=== PATIENT | male | born 1935 | race Caucasian/White ===

== ENCOUNTER → 2020-05-30 10:15 | Outpatient (BNVA) | payer MEDICARE, SELFPAY | PROVIDERS: PCP Hospitalist; Visit Provider Urology | DX: N40.0 Benign prostatic hyperplasia without lower urinary tract symptoms (principal); R33.9 Retention of urine, unspecified | CPT/HCPCS: 51798; 81002; 99212 ==

== ENCOUNTER 2020-12-05 10:51 | Outpatient (REF) | payer MEDICARE, SELFPAY | END 2020-12-05 10:52 | disposition home or self-care (01) | LOC: HO.LNP 10:51 | DX: R33.9 Retention of urine, unspecified (principal) | CPT/HCPCS: 51798; 81002; 87086; 87088; 87186; 99212 ==

== ENCOUNTER → 2021-06-04 08:59 | Outpatient (BNVA) | payer MEDICARE, SELFPAY | PROVIDERS: PCP Hospitalist | DX: R33.9 Retention of urine, unspecified (principal) | CPT/HCPCS: 51798; 99212 ==

== ENCOUNTER 2021-07-09 21:53 | Emergency (ER) | payer MEDICARE, SELFPAY ==
--- NOTE | ~2021-07-09 | XR_ITS ---
EXAMINATION: XR CHEST CLINICAL INFORMATION: Cough. Covid. COMPARISON: None TECHNIQUE: Frontal portable view of the chest was obtained. 10:44 PM FINDINGS: Lungs are clear. No pulmonary vascular congestion. There is no pleural effusion. The heart size is normal. The cardiac and mediastinal contours are normal. There are calcifications of the thoracic aorta. There are multilevel degenerative changes of dorsal spine. 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 Degenerative change of glenohumeral and acromioclavicular joints of both shoulders. XR/XR chest 1V IMPRESSION: Unremarkable examination.
[2021-07-09 22:16] VITALS: BP 118/62; BP 146/71; PULSE 72; PULSE 80; RESP 13; TEMP 37.3; O2SAT 96; O2SAT 97; BMI 23.4
--- NOTE | 2021-07-09 22:16 | ECG_ITS ---
Test Reason : UPPER RESP Blood Pressure : / mmHG Vent. Rate : 080 BPM Atrial Rate : 080 BPM P-R Int : 156 ms QRS Dur : 082 ms QT Int : 330 ms P-R-T Axes : 071 054 044 degrees QTc Int : 380 ms Normal sinus rhythm Normal ECG When compared with ECG of 13-DEC-2001 14:51, No significant change was found Referred By: Vandana Falk Electronically Signed By:JOSE CALLAHAN
--- NOTE | 2021-07-09 22:17 | ED_ITS ---
HPI - General Adult General Chief complaint: Upper Respiratory Symptoms Stated complaint: cough due to covid Time Seen by Provider: 07/09/21 22:03 Source: patient Mode of arrival: ambulatory Limitations: no limitations History of Present Illness HPI narrative: Pt comes to the ED c/o worsening cough for 4 days. Patient states that 4 days ago he tested positive for COVID-19. His daughter and his also have COVID- 19. Patient states that he is immunized for COVID and also has a blister. Patient states that the cough has been present for over a month now, but recently got worse. Patient reports intermittent episodes of tachycardia, no significant shortness of breath. No chest pain, no lower extremity pain Related Data Home Medications Medication Instructions Recorded Confirmed fluticasone propionate 50 1 spray INTRANASAL BID 05/30/20 mcg/actuation nasal spray,suspension ipratropium bromide 21 mcg (0.03 INTRANASAL 05/30/20 %) nasal spray Previous Rx's Medication Instructions Recorded ascorbic acid (vitamin C) 1,000 mg 1 g PO DAILY 90 Days #90 tab 05/30/20 tablet sulfamethoxazole 800 1 tab PO BID 5 Days #10 tab 12/10/20 mg-trimethoprim 160 mg tablet (Bactrim DS) bethanechol chloride 25 mg tablet 25 mg PO BID 30 Days #60 tab 06/04/21 terazosin 10 mg capsule 10 mg PO BEDTIME #90 cap 06/30/21 nirmatrelvir 150 mg x 2-ritonavir See Rx Instructions .ROUTE 07/10/21 100 mg tablet (EUA) (Paxlovid .COMPLEX #30 tab (EUA)) Allergies Allergy/AdvReac Type Severity Reaction Status Date / Time No Known Allergies Allergy Verified 07/09/21 22:07 [No Known Allergies*] Review of Systems Review of Systems: Constitutional : No Weight loss, No Fever, No Chills, No Night Sweats, No Fatigue, No Malaise ENT/Mouth : No Hearing loss, No Ear Pain, No Nasal Congestion, No Sinus Pain, No Hoarseness, No sore throat, No Rhinorrhea, No Swallowing Difficulty Eyes: No Eye Pain, No Swelling, No Redness, No Foreign Body, No Discharge, No Vision Changes Cardiovascular : No Chest Pain, No SOB, No Dyspnea on Exertion, No Orthopnea, No Edema, No Palpitations Respiratory : Complaining of worsening dry cough, No Sputum, No Wheezing, No Smoke Exposure, No Dyspnea Gastrointestinal : No Nausea, No Vomiting, No Diarrhea, No Constipation, No abdominal Pain, No Hematochezia, No Melena Genitourinary : no irregular bleeding, No Dysuria, No Urinary Frequency, No Hematuria, No Urinary Incontinence, No Urgency, No Flank Pain, No Urinary Flow Changes, No Hesitancy Musculoskeletal : No joint pain, No Myalgias, No Joint Swelling Skin : No Skin Lesions, No rash Neuro : No Weakness, No Numbness, No Paresthesias, No Loss of Consciousness, No Dizziness, No Headache Psych : No Anxiety/Panic, No Depression, No SI/HI/AH/VH, No Social Issues, Heme/Lymph: No Bruising, No Bleeding,No Lymphadenopathy Endocrine : No Polyuria, No Polydipsia, No Temperature Intolerance [facility] Past Medical History Medical History BPH (benign prostatic hyperplasia) H/O urinary retention UTI (urinary tract infection) Surgical History History of hernia repair Social History Social History Alcohol intake: current Alcohol intake frequency: holidays/special occasions only Alcohol type: hard liquor Patient Tobacco Use Status: Former Tobacco user Smoked in Last 30 Days: No Use of substances other than those prescribed or required for medical reasons: No Advance Directives: No Advance Directives Information Provided: No Physical Exam ED Vital Signs: Vital Signs - 24 hr 07/09/21 22:16 07/09/21 22:24 07/09/21 22:53 Temperature 99.1 F Pulse Rate 72 76 Respiratory Rate 13 21 H Blood Pressure 146/71 H Pulse Oximetry 96 97 96 07/09/21 23:59 07/10/21 00:00 Temperature 98.8 F Pulse Rate 81 Respiratory Rate 20 Blood Pressure 137/70 Pulse Oximetry 96 BMI result Body Mass Index 23.4 Const Other: Appearance: Alert. Oriented X3. No acute distress. Well-appearing Eyes: Pupils equal, round and reactive to light. ENT: Pharynx normal. Neck: Normal inspection. Neck supple. No lymph nodes noted. No crepitus CVS: Normal heart rate and rhythm. Pulses normal. Normal S1 and S2 Respiratory: No respiratory distress. Breath sounds normal. No Wheezing. No r ales , oxygen saturation 98% on room air. Abdomen: Soft and nontender. No rigidity. No distention. Skin: Skin warm and dry. Normal skin color. Normal skin turgor. Extremities: No lower extremity edema. No Lacerations. No Rash Neuro: Oriented X 3. No motor deficit. No sensory deficit. Moving all extremities. No slurred speech. CN 2 through 12 grossly intact Psych: calm, cooperative, normal affect Course Course Course Narrative: Chest x-ray and labs pending. As expected, patient tested positive for COVID-19. Patient has mild CRIS, we do not have any previous labs to compare creatinine level. Patient will be receiving IV fluids. Ambulating trial without oxygen, patient's saturation remained 94-97. Patient had no shortness of breath. Patient was given 1 L of IV fluids. Patient instructed to follow-up with his primary care physician. I discussed with the patient that the weakness and the cough will remain for several weeks Medical Decision Making Lab Data Result diagrams: 07/09/21 22:40 07/09/21 22:40 Labs: Lab Results 07/09/21 07/09/21 07/09/21 Range/Units 22:40 22:40 22:40 WBC 5.9 (4.8-10.8) X10*3/uL RBC 4.08 L (4.60-5.80) X10*6/uL Hgb 13.3 L (14.0-18.0) g/dl Hct 38.6 L (42.0-52.0) % MCV 94.6 (80.0-98.0) fL MCH 32.6 (27.0-33.0) pg MCHC 34.5 (31.0-36.0) g/dl RDW 12.9 (11.0-16.0) % Plt Count 164 (160-400) X10*3/uL MPV 9.5 (9.4-12.4) fL Immature Gran % (Auto) 0.2 (0.0-0.4) % Neut % (Auto) 75.8 H (45-73) % Lymph % (Auto) 9.0 L (20-40) % Rutherford % (Auto) 14.5 H (2-11) % Eos % (Auto) 0.2 (0-4) % Baso % (Auto) 0.3 (0-2) % Lymph # (Auto) 0.5 L (1.2-4.9) X10*3/uL Rutherford # (Auto) 0.9 (0.1-1.2) X10*3/uL Eos # (Auto) 0.0 (0.0-0.4) X10*3/uL Baso # (Auto) 0.0 (0.0-0.2) X10*3/uL Abs Immat Gran (auto) 0.01 (0.00-0.03) X10*3/uL Absolute Neuts (auto) 4.4 (2.0-8.3) x10*3/uL Absolute Nucleated RBC 0.000 (0.0-0.012) X10*3/uL Nucleated RBC % (auto) 0.0 (0.0-0.2) /100WBC D-Dimer High Sensitivty NG/ML Sodium 135 (135-145) mmol/L Potassium 3.9 (3.3-5.1) mmol/L Chloride 102 (96-108) mmol/L Carbon Dioxide 26 (22-29) mmol/L Anion Gap 11 L (12-20) BUN 21 H (9-16) mg/dL Creatinine 1.50 H (0.5-1.4) mg/dL Estim Creat Clear Calc 25.9 Estimated GFR 45 Random Glucose 114 (60-115) mg/dL Calcium 8.7 (8.4-10.2) mg/dL Total Bilirubin 0.5 (0.0-1.0) mg/dL Direct Bilirubin 0.2 (0.0-0.5) mg/dL AST 24 (5-37) U/L ALT 18 (0-40) U/L Alkaline Phosphatase 50 (39-117) U/L Troponin I High Sens 5.1 (<3.5-35.0) ng/L Total Protein 6.5 (6.5-8.0) g/dL Albumin 3.8 (3.5-5.0) g/dL COVID-19 (LEE ANN) (Negative) COVID-19 Clin Com 07/09/21 07/09/21 Range/Units 22:40 23:58 WBC (4.8-10.8) X10*3/uL RBC (4.60-5.80) X10*6/uL Hgb (14.0-18.0) g/dl Hct (42.0-52.0) % MCV (80.0-98.0) fL MCH (27.0-33.0) pg MCHC (31.0-36.0) g/dl RDW (11.0-16.0) % Plt Count (160-400) X10*3/uL MPV (9.4-12.4) fL Immature Gran % (Auto) (0.0-0.4) % Neut % (Auto) (45-73) % Lymph % (Auto) (20-40) % Rutherford % (Auto) (2-11) % Eos % (Auto) (0-4) % Baso % (Auto) (0-2) % Lymph # (Auto) (1.2-4.9) X10*3/uL Rutherford # (Auto) (0.1-1.2) X10*3/uL Eos # (Auto) (0.0-0.4) X10*3/uL Baso # (Auto) (0.0-0.2) X10*3/uL Abs Immat Gran (auto) (0.00-0.03) X10*3/uL Absolute Neuts (auto) (2.0-8.3) x10*3/uL Absolute Nucleated RBC (0.0-0.012) X10*3/uL Nucleated RBC % (auto) (0.0-0.2) /100WBC D-Dimer High Sensitivty 164 NG/ML Sodium (135-145) mmol/L Potassium (3.3-5.1) mmol/L Chloride (96-108) mmol/L Carbon Dioxide (22-29) mmol/L Anion Gap (12-20) BUN (9-16) mg/dL Creatinine (0.5-1.4) mg/dL Estim Creat Clear Calc Estimated GFR Random Glucose (60-115) mg/dL Calcium (8.4-10.2) mg/dL Total Bilirubin (0.0-1.0) mg/dL Direct Bilirubin (0.0-0.5) mg/dL AST (5-37) U/L ALT (0-40) U/L Alkaline Phosphatase (39-117) U/L Troponin I High Sens (<3.5-35.0) ng/L Total Protein (6.5-8.0) g/dL Albumin (3.5-5.0) g/dL COVID-19 (LEE ANN) Positive A (Negative) COVID-19 Clin Com See Note Discharge Plan Discharge Clinical Impression: COVID-19, CRIS (acute kidney injury) Patient Disposition: Home, Self-Care Instructions: Acute Kidney Injury (DC), COVID-19 (Coronavirus Disease 2019) (ED) Additional Instructions: Please follow-up with your primary care physician tomorrow. If you have any worsening or new symptoms, please return to the emergency room or call 911 Prescriptions: New Paxlovid (EUA) 150 mg x 2- 100 mg tablet See Rx Instructions .ROUTE .COMPLEX Qty: 30 0RF Rx Instructions: take TWO 150 mg tablets of nirmatrelvir with ONE 100 mg tablet of ritonavir twice daily for 5 days No Action sulfamethoxazole-trimethoprim [Bactrim DS] 800-160 mg tablet 1 tab PO BID 5 Days Qty: 10 0RF terazosin 10 mg capsule 10 mg PO BEDTIME Qty: 90 0RF fluticasone propionate 50 mcg/actuation spray,suspension 1 spray intranasal BID 0RF ipratropium bromide 21 mcg (0.03 %) spray,non-aerosol intranasal 0RF ascorbic acid (vitamin C) 1,000 mg tablet 1 g PO DAILY 90 Days Qty: 90 1RF bethanechol chloride 25 mg tablet 25 mg PO BID 30 Days Qty: 60 3RF
[2021-07-09 22:24] VITALS: PULSE 746; O2SAT 97
[2021-07-09 22:46] LABS: MANUAL DIFF FLAG NO
[2021-07-09 22:48] LABS: Basophils Percent Auto 0.3 % (0-2); Eosinophils Percent Auto 0.2 % (0-4); Hematocrit 38.6 % (42.0-52.0); Hemoglobin 13.3 g/dl (14.0-18.0); Imm Gran Abs Auto 0.01 X10*3/uL (0.00-0.03); Imm Gran Pct Auto 0.2 % (0.0-0.4); Lymphocytes Absolute Auto 0.5 X10*3/uL (1.2-4.9); Mean Corpuscular HGB Conc 34.5 g/dl (31.0-36.0); Mean Corpuscular Hemoglobin 32.6 pg (27.0-33.0); Mean Corpuscular Volume 94.6 fL (80.0-98.0); Mean Platelet Volume 9.5 fL (9.4-12.4); Monocytes Absolute Auto 0.9 X10*3/uL (0.1-1.2); Monocytes Percent Auto 14.5 % (2-11); Neutrophils Absolute Auto 4.4 x10*3/uL (2.0-8.3); Neutrophils Percent Auto 75.8 % (45-73); Platelet Count 164 X10*3/uL (160-400); Red Blood Count 4.08 X10*6/uL (4.60-5.80); Red Cell Distribution Width 12.9 % (11.0-16.0); White Blood Count 5.9 X10*3/uL (4.8-10.8)
--- NOTE | 2021-07-09 22:49 | PC.NURSE ---
spoke w daughter, reports recent medication changes that she is concerned may be causing his heart palpitations/congestion/cough, hx urinary retention - per daughter pt should be urinating every 8-12 hrs and catheterized if not. provider notified.
[2021-07-09 22:53] VITALS: PULSE 76; RESP 21; O2SAT 96
--- NOTE | 2021-07-09 22:54 | PC.NURSE ---
pt a&ox3, vss, asbestos coverer applied - sinus rhythm w occ PVCs. some increased respiratory effort, but O2 sat @ 97% on room air. sob earlier today, now resolved, cough, congestion, sore throat, 7/10 pain. 20G IV placed right forearm, labs drawn. tech notified RE ekg/covid swab.
[2021-07-09 22:55] LABS: D Dimer High Sensitivity 164 NG/ML
[2021-07-09 23:02] LABS: Alanine Aminotransferase 18 U/L (0-40); Albumin Level 3.8 g/dL (3.5-5.0); Alkaline Phosphatase 50 U/L (39-117); Anion Gap 11 (12-20); Aspartate Amino Transferase 24 U/L (5-37); Bilirubin Direct 0.2 mg/dL (0.0-0.5); Bilirubin Total 0.5 mg/dL (0.0-1.0); Blood Urea Nitrogen 21 mg/dL (9-16); Calcium 8.7 mg/dL (8.4-10.2); Carbon Dioxide 26 mmol/L (22-29); Chloride 102 mmol/L (96-108); Creatinine Clr Calc Pharmacy 25.9; Estimated Glomerular Filt Rate 45; Glucose Random 114 mg/dL (60-115); Potassium 3.9 mmol/L (3.3-5.1); Sodium 135 mmol/L (135-145); Total Protein 6.5 g/dL (6.5-8.0)
[2021-07-09 23:06] LABS: Troponin-I High Sensitivity 5.1 ng/L (<3.5-35.0)
--- NOTE | 2021-07-09 23:40 | PC.NURSE ---
PT is due to receive second dose of Paxlovid at 0800 on 07/10/21.
[2021-07-09] MEDS: Benzonatate 100 MG CAPSULE 200 MG PO (23:54)
[2021-07-09 23:59] VITALS: BP 137/70; PULSE 81; RESP 20; O2SAT 96
[2021-07-10] VITALS: TEMP 37.1
[2021-07-10 00:28] LABS: COVID-19 Test Positive (Negative)
[2021-07-10] MEDS: 0.9 % Sodium Chloride 1,000 ML 999 ML IVCONT (00:40)
--- NOTE | 2021-07-10 00:44 | PC.NURSE ---
At provider's request, pt ambulated around room with pulse ox connected and O2 sat remained steady at 95% on RA. Provider made aware. Plan to administer fluids and discharge home.
[2021-07-10 01:47] VITALS: BP 138/69; PULSE 80; RESP 16; TEMP 37.7; O2SAT 96
--- NOTE | 2021-07-10 02:01 | PC.NURSE ---
Pt temp continued to increase prior to discharge. Pt was offered PO tylenol to treat fever but pt declined because he didn't want to make his ride wait any longer and he said he could take some Tylenol at home. Provider made aware.
== END 2021-07-10 02:05 | disposition home or self-care (01) ==
PROVIDERS: Emergency Provider Emergency Medicine
DX: U07.1 COVID-19 (principal); N17.9 Acute kidney failure, unspecified; Z20.822 Contact with and (suspected) exposure to COVID-19
CPT/HCPCS: 36415; 71045; 80048; 80076; 84484; 85025; 85379; 87635; 93005; 96360; 99284; 99285

== ENCOUNTER 2021-09-04 08:42 | Outpatient (REF) | payer MEDICARE, SELFPAY | END 2021-09-04 08:43 | disposition home or self-care (01) | LOC: HO.LAB 08:42 | DX: R32 Unspecified urinary incontinence (principal); R33.9 Retention of urine, unspecified; N39.0 Urinary tract infection, site not specified | CPT/HCPCS: 51798; 87086; 87088; 87186; 99212 ==

== ENCOUNTER 2022-03-09 09:23 | Outpatient (REF) | payer MEDICARE, SELFPAY | END 2022-03-09 09:24 | disposition home or self-care (01) | LOC: HO.LAB 09:23 | PROVIDERS: Visit Provider Nurse Practitioner Family | DX: N39.0 Urinary tract infection, site not specified (principal); R33.9 Retention of urine, unspecified; N40.0 Benign prostatic hyperplasia without lower urinary tract symptoms | CPT/HCPCS: 51798; 87086; 87088; 87186; 99212 ==

== ENCOUNTER 2022-04-07 12:09 | Outpatient (REF) | payer MEDICARE, SELFPAY ==
--- NOTE | ~2022-04-07 | US_ITS ---
EXAMINATION: US RETROPERITONEAL COMPLETE (RENAL) CLINICAL INFORMATION: Urinary tract infection, site not specified. COMPARISON: None TECHNIQUE: Real-time imaging of the kidneys and bladder. FINDINGS: RIGHT KIDNEY: 9.3 x 5.0 x 4.3 cm (SAG x AP x TRV). The kidney is normal in size, contour, and echogenicity. Renal cortical thickness is normal. No renal calculi or focal parenchymal lesions. There is mild hydronephrosis. LEFT KIDNEY: 10.0 x 5.1 x 4.0 cm (SAG x AP x TRV). The kidney is normal in size, contour, and echogenicity. Renal cortical thickness is normal. No renal calculi or focal parenchymal lesions. There is mild hydronephrosis. BLADDER: Well distended and normal. Bilateral ureteral jets are demonstrated. Prevoid bladder volume is 318 mL. Postvoid bladder volume is 150 mL. Multiple diverticula are seen, the largest measuring 6.2 cm, 2.1 cm and 1.6 cm. ADDITIONAL FINDINGS: The prostate gland and seminal vesicles are poorly visualized. US/US retroperitoneal comp IMPRESSION: 1. There is mild bilateral hydronephrosis. 2. There is an increased postvoid residual volume. 3. 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
== END 2022-04-07 12:10 | disposition home or self-care (01) ==
LOC: HO.US 12:09
PROVIDERS: Visit Provider Nurse Practitioner Family
DX: N39.0 Urinary tract infection, site not specified (principal); R33.9 Retention of urine, unspecified; N40.0 Benign prostatic hyperplasia without lower urinary tract symptoms
CPT/HCPCS: 76770

== ENCOUNTER → 2022-05-06 11:34 | Outpatient (BNVA) | payer MEDICARE, SELFPAY | PROVIDERS: Visit Provider Nurse Practitioner Family | DX: N40.1 Benign prostatic hyperplasia with lower urinary tract symptoms (principal); N13.8 Other obstructive and reflux uropathy; N39.0 Urinary tract infection, site not specified; Z79.82 Long term (current) use of aspirin; Z79.899 Other long term (current) drug therapy | CPT/HCPCS: Q3014 ==

== ENCOUNTER → 2022-06-14 14:21 | Outpatient (BNVA) | payer MEDICARE, SELFPAY | PROVIDERS: PCP Physician Assistant; Visit Provider Urology | DX: N40.1 Benign prostatic hyperplasia with lower urinary tract symptoms (principal); N13.8 Other obstructive and reflux uropathy; R33.8 Other retention of urine; N32.3 Diverticulum of bladder; N31.9 Neuromuscular dysfunction of bladder, unspecified; Z79.82 Long term (current) use of aspirin; Z79.899 Other long term (current) drug therapy | CPT/HCPCS: 51798; 99212 ==

== ENCOUNTER → 2022-06-16 08:53 | Outpatient (BNVA) | payer MEDICARE, SELFPAY | PROVIDERS: PCP Physician Assistant; Visit Provider Urology ==

== ENCOUNTER 2022-08-16 13:02 | Outpatient (REF) | payer MEDICARE, SELFPAY | END 2022-08-16 13:03 | disposition home or self-care (01) | LOC: HO.LAB 13:02 | PROVIDERS: PCP Physician Assistant; Visit Provider Urology | DX: N40.1 Benign prostatic hyperplasia with lower urinary tract symptoms (principal); R33.8 Other retention of urine; N39.0 Urinary tract infection, site not specified; N31.9 Neuromuscular dysfunction of bladder, unspecified; Z79.899 Other long term (current) drug therapy | CPT/HCPCS: 51798; 87086; 99212 ==

== ENCOUNTER 2022-11-02 12:52 | Outpatient (REF) | payer MEDICARE, SELFPAY ==
--- NOTE | ~2022-11-02 | US_ITS ---
EXAMINATION: US RETROPERITONEAL COMPLETE (RENAL) CLINICAL INFORMATION: Neuromuscular dysfunction of the bladder, unspecified, measure prostate. COMPARISON: Ultrasound retroperitoneal 04/07/2022. TECHNIQUE: Real-time imaging of the kidneys and bladder. FINDINGS: RIGHT KIDNEY: 9.5 x 5.1 x 5.6 cm (SAG x AP x TRV). The kidney is normal in size, contour, and echogenicity. Renal cortical thickness is normal. No calculi or focal parenchymal lesions. No hydronephrosis. LEFT KIDNEY: 9.2 x 4.9 x 4.3 cm (SAG x AP x TRV). The kidney is normal in size, contour, and echogenicity. Renal cortical thickness is normal. No calculi or focal parenchymal lesions. No hydronephrosis. BLADDER: The bladder is distended. There are multiple bladder diverticuli. Bilateral ureteral jets are demonstrated. Prevoid bladder volume is 384 mL. Postvoid bladder volume is 228 mL. The prostate is poorly visualized, but appears enlarged. US/US retroperitoneal comp IMPRESSION: Distended urinary bladder with multiple bladder diverticula. No hydronephrosis. Post void bladder residual volume 228 mL.
== END 2022-11-02 12:53 | disposition home or self-care (01) ==
LOC: HO.HMGCX 12:52
PROVIDERS: PCP Physician Assistant; Visit Provider Urology
DX: N31.9 Neuromuscular dysfunction of bladder, unspecified (principal); U07.1 COVID-19; N40.0 Benign prostatic hyperplasia without lower urinary tract symptoms
CPT/HCPCS: 76770

== ENCOUNTER 2022-11-03 23:47 | Emergency (ER) | payer MEDICARE, SELFPAY ==
--- NOTE | ~2022-11-03 | CT_ITS ---
EXAMINATION: CT HEAD WITHOUT CONTRAST CLINICAL INFORMATION: Acute head injury, rule out intracranial hemorrhage COMPARISON: None available. TECHNIQUE: Contiguous axial imaging was performed from the skull base to vertex without intravenous administration of contrast. This CT examination was performed using dose optimization techniques as appropriate, variously including the following: *Automated exposure control *Adjustment of mA and/or kV according to patient size (this includes techniques or standardized protocols for targeted exams where dose is matched to indication/reason for exam; i.e. extremities or head) *Use of iterative reconstruction technique DLP: 494 mGy-cm FINDINGS: There is no evidence of acute intracranial hemorrhage or territorial infarction. No abnormal mass-effect or midline shift is seen. Zuleta to white matter differentiation is well preserved. No extra-axial fluid collections are identified. The ventricles are normal in size. There is mild periventricular white matter hypoattenuation consistent with chronic small vessel ischemic disease. Mild volume loss is noted. Mild inferior right frontal scalp soft tissue swelling. No acute fracture is seen. Slight mucosal thickening of the frontal sinuses. The mastoid air cells are well-aerated. CT/CT head/brain wo IV con IMPRESSION: No acute intracranial pathology. Mild inferior right frontal scalp soft tissue swelling.
[2022-11-04 00:03] VITALS: BP 162/57; PULSE 57; RESP 19; TEMP 36.7; O2SAT 96; BMI 24.5
== END 2022-11-04 06:31 | disposition home or self-care (01) ==
PROVIDERS: Emergency Provider Internal Medicine
DX: S09.90XA Unspecified injury of head, initial encounter (principal); S05.11XA Contusion of eyeball and orbital tissues, right eye, initial encounter; W18.30XA Fall on same level, unspecified, initial encounter; Y93.9 Activity, unspecified; Y92.9 Unspecified place or not applicable; Y99.9 Unspecified external cause status
CPT/HCPCS: 70450; 99281; 99284

== ENCOUNTER 2023-01-05 09:41 | Outpatient (AMB) | payer MEDICARE, SELFPAY ==
--- NOTE | 2023-01-05 09:44 | A.OFFVIS_ITS ---
Intake Intake Visit Reasons: 4m/US/MELANI/BPH/UTI Intake Note: Patient presents today for a follow-up on US/MELANI/BPH/UTI, US Completed on 11/02/2022: Meds- Tamsulosin Allergies to Antibiotic- Nitrofurantoin Blood Thinner- None PVR- 0 mL Cushion Stuffer Required: No Accompanied by: Self / Same As Patient Allergies nitrofurantoin Allergy (Unknown, Verified 01/05/23 09:47) Rash bactrim Adverse Reaction (Intermediate, Uncoded 01/05/23 09:47) Vomiting HPI HPI Comments History of Present Illness Details Seth is an 87-year-old male who presents today to the office for a follow-up. 01/05/2023? He is followed today for US/MELANI/BPH/UTI. He was last seen by me on 08/16/2022 for BPH. Urine c/s, and Renal US prior was ordered during that time. Ceftin 500 mg BID for 5 days, and Lotrisone 1% cream to apply on the foreskin P RN was ordered for balanitis. The patient states he is compliant with CIC once daily, He was catheterized last night. States using 14 fr catheter. Patient states that he is drinking adequate amount of water daily. He denies any burning with urination at this time. I reviewed the retroperitoneum US results from 11/02/2022 revealed distended urinary bladder with multiple bladder diverticula. No calculi or focal parenchymal lesions. No hydronephrosis. Post void bladder residual volume 228 mL, and Pre void volume was 384 mL. 01/05/2023: Evaluation today?UA? Bladder scan PVR: 184 mL. Review of charts: Last visit: 08/16/22-- Prostate exam-- No suspicious nodules palpated.? 01/05/2023: Plan: Continue Bethanecol and tamsulosin. Continue catheterization at bed time. [facility] Medical History UTI (urinary tract infection) BPH (benign prostatic hyperplasia) H/O urinary retention Surgical History H/O transurethral resection of prostate History of hernia repair Family History (Updated 01/05/23 @ 09:48 by JUWAN Duarte) Father No problems noted. Mother No problems noted. Alcohol intake: current Alcohol intake frequency: holidays/special occasions only Alcohol type: hard liquor Patient Tobacco Use Status: Former Tobacco user Review of Systems Const Reports no additional complaints Eyes Reports no additional complaints ENT Denies neck pain Card Denies leg edema Resp Denies cough GI Denies constipation Musc Reports no additional complaints and Denies neck pain Skin/Breast Denies rash and Denies unusual bruising Neuro Reports no additional complaints Psych Reports no additional complaints Endo Reports no additional complaints Brent/Lymph Reports no additional complaints Aller/Immun Reports no additional complaints Office Procedures Post Void Residual Post Residual Void Post Void Residual (PVR): 0 [id number] Void Residual by ultrasound Results AMB Urinalysis, Automated UA Leukoctes 125 Valerie/uL Last Edit by JUWAN Duarte on 01/05/23 10:07 2+ Lana Nesbitt 01/05/23 10:07 UA Nitrite Positive Last Edit by JUWAN Duarte on 01/05/23 10:07 UA Urobilinogen 0.2 mg/dL Last Edit by JUWAN Duarte on 01/05/23 10:0 7 UA Protein 0 mg/dL Last Edit by JUWAN Duarte on 01/05/23 10:07 UA pH 6.0 Last Edit by JUWAN Duarte on 01/05/23 10:07 UA Blood 0 Remy/uL Last Edit by JUWAN Duarte on 01/05/23 10:07 UA Specific Crandall 1.015 Last Edit by JUWAN Duarte on 01/05/23 10: 07 UA Ketone Negative Last Edit by JUWAN Duarte on 01/05/23 10:07 UA Bilirubin 0 mg/dL Last Edit by JUWAN Duarte on 01/05/23 10:07 UA Glucose 0 mg/dL Last Edit by JUWAN Duarte on 01/05/23 10:07 Results Reviewed Results Reviewed: Laboratory Last Values Urine pH (Auto) 6.0 01/05/23 10:05 Specific Crandall (Auto) 1.015 01/05/23 10:05 Urine Protein (Auto) 0 mg/dL 01/05/23 10:05 Glucose (UA)(Auto) 0 mg/dL 01/05/23 10:05 Urine Ketones (Auto) Negative 01/05/23 10:05 Urine Blood (Auto) 0 Remy/uL 01/05/23 10:05 Urine Nitrite (Auto) Positive 01/05/23 10:05 Urine Bilirubin (Auto) 0 mg/dL 01/05/23 10:05 Urine Urobilinogen (Auto) 0.2 mg/dL 01/05/23 10:05 Leukocyte Esterase (Auto) 125 Valerie/uL 01/05/23 10:05 Date of Service: 11/02/22 EXAMINATION:? US RETROPERITONEAL COMPLETE (RENAL) CLINICAL INFORMATION: Neuromuscular dysfunction of the bladder, unspecified, measure prostate. COMPARISON:? Ultrasound retroperitoneal 04/07/2022. FINDINGS: RIGHT KIDNEY: 9.5 x 5.1 x 5.6 cm (SAG x AP x TRV). The kidney is normal in size, contour, and echogenicity. Renal cortical thickness is normal. No calculi or focal parenchymal lesions. No hydronephrosis. LEFT KIDNEY: 9.2 x 4.9 x 4.3 cm (SAG x AP x TRV). The kidney is normal in size, contour, and echogenicity. Renal cortical thickness is normal. No calculi or focal parenchymal lesions. No hydronephrosis. BLADDER: The bladder is distended. There are multiple bladder diverticuli. Bilateral ureteral jets are demonstrated. Prevoid bladder volume is 384 mL. Postvoid bladder volume is 228 mL. The prostate is poorly visualized, but appears enlarged. IMPRESSION:? Distended urinary bladder with multiple bladder diverticula. No hydronephrosis. Post void bladder residual volume 228 mL. Assessment & Plan Assessment & Plan (1) Incomplete bladder emptying: Code(s): R33.9 - Retention of urine, unspecified (2) Neurogenic bladder: Code(s): N31.9 - Neuromuscular dysfunction of bladder, unspecified (3) BPH (benign prostatic hyperplasia): Code(s): N40.0 - Benign prostatic hyperplasia without lower urinary tract symptoms (4) UTI symptoms: Code(s): R39.9 - Unspecified symptoms and signs involving the genitourinary system Plan Continue Bethanecol and tamsulosin. Continue catheterization at bed time. Orders: Orders AMB Post Void Residual by ultrasound 01/05/23 N39.8 - Other specified disorders of urinary system Urine Culture 01/05/23 N39.0 - Urinary tract infection, site not specified AMB Urinalysis Automated 01/05/23 Z13.9 - Encounter for screening, unspecified Patient Instructions: The patient had an opportunity to ask questions regarding treatment plan. All questions were answered. Imaging, Laboratory studies and physical exam results were discussed and reviewed in detail. No major barriers to understanding were identified. The patient expressed understanding and agreement with the above treatment plan.? ? ? The patient is aware they should contact our office by phone for worsening of their current condition or the appearance of new symptoms. Compliance is encouraged with any medications and followup testing that is ordered.? ? ? It is a privilege to be allowed the opportunity to participate in the urologic care of your patient. If you have any questions or concerns regarding treatment for the above conditions please do not hesitate to contact me. The office telephone contact is [phone].? ? ? This note is constructed in part using voice recognition software. While every effort has been made to ensure accuracy soaking pits supervisor errors may have been included.? ? ? Yours sincerely,? ? ? Carmelita Phipps MD? Coding Level of Care Code Est Pt Level 3 (69632) Diagnoses Incomplete bladder emptying R33.9 Neurogenic bladder N31.9 BPH (benign prostatic hyperplasia) N40.0 UTI symptoms R39.9 CPT Codes Post Residual Void - PVR CPT Code: 97032-Uvnt Void Residual by ultrasound ([id number])
== END 2023-01-05 12:25 | disposition home or self-care (01) ==
PROVIDERS: PCP Physician Assistant; Visit Provider Urology
DX: R33.9 Retention of urine, unspecified (principal); N31.9 Neuromuscular dysfunction of bladder, unspecified; N40.0 Benign prostatic hyperplasia without lower urinary tract symptoms; R39.9 Unspecified symptoms and signs involving the genitourinary system
CPT/HCPCS: 99213

== ENCOUNTER 2023-01-05 09:41 | Outpatient (REF) | payer MEDICARE, SELFPAY | END 2023-01-05 09:42 | disposition home or self-care (01) | LOC: HO.LAB 09:41 | PROVIDERS: PCP Physician Assistant; Visit Provider Urology | DX: N40.1 Benign prostatic hyperplasia with lower urinary tract symptoms (principal); R33.8 Other retention of urine; N31.9 Neuromuscular dysfunction of bladder, unspecified; R39.9 Unspecified symptoms and signs involving the genitourinary system; Z79.899 Other long term (current) drug therapy | CPT/HCPCS: 51798; 81003; 87086; 87088; 87186; 99212 ==

== ENCOUNTER 2023-06-30 08:23 | Outpatient (REF) | payer MEDICARE, SELFPAY | END 2023-06-30 08:24 | disposition home or self-care (01) | LOC: HO.LAB 08:23 | PROVIDERS: PCP Physician Assistant; Visit Provider Urology | DX: N39.0 Urinary tract infection, site not specified (principal); R39.9 Unspecified symptoms and signs involving the genitourinary system; N40.0 Benign prostatic hyperplasia without lower urinary tract symptoms; R33.9 Retention of urine, unspecified | CPT/HCPCS: 51798; 81003; 87086; 87088; 87186; 99212 ==

== ENCOUNTER 2023-06-30 08:23 | Outpatient (AMB) | payer MEDICARE, SELFPAY ==
--- NOTE | 2023-06-30 08:27 | A.OFFVIS_ITS ---
Intake Intake Visit Reasons: follow up SEND NOTES TO PCP Intake Note: Patient presents today for a follow-up on MELANI/BPH/UTI: Meds- Tamsulosin Allergies to Antibiotic- Nitrofurantoin Blood Thinner- None PVR- 55mL Spectral Scientist Required: No Accompanied by: Self / Same As Patient Allergies nitrofurantoin Allergy (Unknown, Verified 04/28/23 15:26) Rash bactrim Adverse Reaction (Intermediate, Uncoded 04/28/23 15:26) Vomiting Medication List - Last Reconciled 06/30/23 by Carmelita Phipps MD ascorbic acid (vitamin C) 1,000 mg PO DAILY 90 days bethanechol chloride 25 mg PO BID 90 days clotrimazole-betamethasone 1-0.05 % 1 appl topical BID PRN 2 weeks fluticasone propionate 50 mcg/actuation 1 spray intranasal BID ipratropium bromide intranasal multivitamin 1 tab PO DAILY tamsulosin 0.8 mg (2 x 0.4 mg) PO BEDTIME 90 days HPI HPI Comments History of Present Illness Details 06/30/23--Seth is an 87-year-old male w ho presents today to the office for a follow-up. He states he has been compliant with the bethanechol and tamsulosin. He states he has been urinating well. He continues to catheterize at bedtime and reports that the urine volume is minimal. He denies dysuria. He denies gross hematuria. Plan discussed we will continue bethanechol 25 mg twice a day, tamsulosin 0.8 mg daily. Will discontinue catheterization. Follow-up in 4 months. Review of chart: 01/05/2023? He is followed today for US/MELANI/BPH/UTI. He was last seen by me on 08/16/2022 for BPH. Urine c/s, and Renal US prior was ordered during that time. Ceftin 500 mg BID for 5 days, and Lotrisone 1% cream to apply on the foreskin PRN was ordered for balanitis. The patient states he is compliant with CIC once daily, He was catheterized last night. States using 14 fr catheter. Patient states that he is drinking adequate amount of water daily. He denies any burning with urination at this time. I reviewed the retroperitoneum US results from 11/02/2022 revealed distended urinary bladder with multiple bladder diverticula. No calculi or focal parenchymal lesions. No hydronephrosis. Post void bladder residual volume 228 mL, and Pre void volume was 384 mL. Evaluation today?UA? Bladder scan PVR: 184 mL. Plan--Continue Bethanecol and tamsulosin. Continue catheterization at bed time. 08/16/22--Prostate exam-- No suspicious no dules palpated.? 06/30/23--Plan discussed we will continue bethanechol 25 mg twice a day, tamsulosin 0.8 mg daily. Will discontinue catheterization. Follow-up in 4 months. FOR[facility]LY [facility], [facility] Medical History UTI (urinary tract infection) BPH (benign prostatic hyperplasia) H/O urinary retention Surgical History H/O transurethral resection of prostate History of hernia repair Family History Father No problems noted. Mother No problems noted. Social History Alcohol intake: current Alcohol intake frequency: holidays/special occasions only Alcohol type: hard liquor Patient Tobacco Use Status: Former Tobacco user Review of Systems Const All systems reviewed & are unremarkable except as noted in HPI and below Reports no additional complaints Eyes Reports no additional complaints ENT Reports no additional complaints Card Reports no additional complaints Resp Reports no additional complaints GI Reports no additional complaints Reports as per HPI Musc Reports no additional complaints Skin/Breast Reports system reviewed and no additional complaints, except as documented Neuro Reports no additional complaints Psych Reports no additional complaints Endo Reports no additional complaints Brent/Lymph Reports no additional complaints Aller/Immun Reports no additional complaints Physical Exam Const General: healthy appearing, no acute distress and well developed Orientation/consciousness: patient oriented x3 HEENT Head: Yes normocephalic and Yes atraumatic Eyes Conjunctivae: conjunctivae normal Neck Neck: Yes normal visual inspection Chest Chest palpation & inspection: normal inspection of the chest Resp Effort & Inspection: normal respiratory effort Neuro General: patient oriented x3 Psych Appearance: grossly normal Affect: normal affect Office Procedures Post Void Residual Post Residual Void Post Void Residual (PVR): [id number] Void Residual by ultrasound Results AMB Urinalysis, Automated UA Leukoctes 125 Valerie/uL Last Edit by JUWAN Duarte on 06/30/23 08:53 2+ Lana Nesbitt 06/30/23 08:53 UA Nitrite Positive Last Edit by JUWAN Duarte on 06/30/23 08:53 UA Urobilinogen 0.2 mg/dL Last Edit by JUWAN Duarte on 06/30/23 08:5 3 UA Protein 15 mg/dL Last Edit by JUWAN Duarte on 06/30/23 08:53 UA pH 6.0 Last Edit by JUWAN Duarte on 06/30/23 08:53 UA Blood 10 Remy/uL Last Edit by JUWAN Duarte on 06/30/23 08:53 UA Specific [place] 1.015 Last Edit by JUWAN Duarte on 06/30/23 08: 53 UA Ketone Negative Last Edit by JUWAN Duarte on 06/30/23 08:53 UA Bilirubin 0 mg/dL Last Edit by JUWAN Duarte on 06/30/23 08:53 UA Glucose 0 mg/dL Last Edit by JUWAN Duarte on 06/30/23 08:53 Results Reviewed Results Reviewed: Laboratory Last Values Urine pH (Auto) 6.0 06/30/23 08:37 Specific [place] (Auto) 1.015 06/30/23 08:37 Urine Protein (Auto) 15 mg/dL 06/30/23 08:37 Glucose (UA)(Auto) 0 mg/dL 06/30/23 08:37 Urine Ketones (Auto) Negative 06/30/23 08:37 Urine Blood (Auto) 10 Remy/uL 06/30/23 08:37 Urine Nitrite (Auto) Positive 06/30/23 08:37 Urine Bilirubin (Auto) 0 mg/dL 06/30/23 08:37 Urine Urobilinogen (Auto) 0.2 mg/dL 06/30/23 08:37 Leukocyte Esterase (Auto) 125 Valerie/uL 06/30/23 08:37 Assessment & Plan Assessment & Plan (1) Incomplete bladder emptying: Code(s): R33.9 - Retention of urine, unspecified (2) Neurogenic bladder: Code(s): N31.9 - Neuromuscular dysfunction of bladder, unspecified (3) BPH (benign prostatic hyperplasia): Code(s): N40.0 - Benign prostatic hyperplasia without lower urinary tract symptoms (4) UTI symptoms: Code(s): R39.9 - Unspecified symptoms and signs involving the genitourinary system Plan Continue Bethanecol and tamsulosin. Discontinue catheterization at bed time. Orders: Orders AMB Urinalysis Automated Today Z13.9 - Encounter for screening, unspecified Urine Culture Today N39.0 - Urinary tract infection, site not specified AMB Post Void Residual by ultrasound Today N39.8 - Other specified disorders of urinary system Medications: Refilled bethanechol chloride 25 mg PO BID 90 days 180 tabs 1RF tamsulosin 0.8 mg (2 x 0.4 mg) PO BEDTIME 90 days 180 caps 3RF Coding Level of Care Code Est Pt Level 4 (88170) Diagnoses Incomplete bladder emptying R33.9 Neurogenic bladder N31.9 BPH (benign prostatic hyperplasia) N40.0 UTI symptoms R39.9 CPT Codes Post Residual Void - PVR CPT Code: 68395-Cojg Void Residual by ultrasound ([id number])
== END 2023-06-30 09:34 | disposition home or self-care (01) ==
PROVIDERS: PCP Physician Assistant; Visit Provider Urology
DX: R33.9 Retention of urine, unspecified (principal); N31.9 Neuromuscular dysfunction of bladder, unspecified; N40.0 Benign prostatic hyperplasia without lower urinary tract symptoms; R39.9 Unspecified symptoms and signs involving the genitourinary system; Z13.9 Encounter for screening, unspecified
CPT/HCPCS: 99214

== ENCOUNTER 2023-10-13 14:41 | Outpatient (REF) | payer MEDICARE, SELFPAY ==
[2023-10-13 16:15] LABS: Appearance Urine Turbid; Color Urine Yellow; Glucose Urine UA Negative (Negative); Leukocyte Esterase Urine Large (3+) (Negative); Nitrite Urine Positive (Negative); PH 6.5 (5.0-9.0); Specific Gravity - Urine 1.015 (1.005-1.025); UMIC TRIGGER UA YES; Urine Blood Large (3+) (Negative); Urine Ketones Negative (Negative); Urine Protein 100 (2+) mg/dL (Neg-Trace)
[2023-10-13 16:28] LABS: Bacteria Urine 4+ (None Seen); Hyaline Casts Urine 0-2 /LPF (0-2); RBC Urine >20 /HPF (0-2); WBC Urine >50 /HPF (0-5)
== END 2023-10-13 14:42 | disposition home or self-care (01) ==
LOC: HO.HMGCLDS 14:41
PROVIDERS: PCP Physician Assistant; Visit Provider Urology
DX: R39.9 Unspecified symptoms and signs involving the genitourinary system (principal); N31.9 Neuromuscular dysfunction of bladder, unspecified; R33.9 Retention of urine, unspecified
CPT/HCPCS: 81001; 87086; 87088; 87186

== ENCOUNTER 2023-11-02 09:23 | Outpatient (AMB) | payer MEDICARE, SELFPAY ==
--- NOTE | 2023-11-02 09:55 | A.OFFVIS_ITS ---
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 The patient was treated on 10/13/2023 with Ceftin. He states that his urinary symptoms have improved. Urinalysis today remains nitrite positive however this is likely from bacterial colonization. As he is asymptomatic a repeat urine culture will not be sent today. We will continue to monitor bladder scan PVR. I will increase bethanechol to 25 mg t.i.d. and add cranberry supplements. We will continue tamsulosin daily. Follow-up in 2 months check renal ultrasound prior. Review of chart: 06/30/23--Seth is an 87-year-old male who presents today to the office for a follow-up. He states he has been compliant with the bethanechol and tamsulosin. He states he has been urinating well. He continues to catheterize at bedtime and reports that the urine volume is minimal. He denies dysuria. He denies gross hematuria. Plan discussed we will continue bethanechol 25 mg twice a day, tamsulosin 0.8 mg daily. Will discontinue catheterization. Follow-up in 4 months. 01/05/2023? He is followed today for US/MELANI/BPH/UTI. He was last seen by me on 08/16/2022 for BPH. Urine c/s, and Renal US prior was ordered during that time. Ceftin 500 mg BID for 5 days, and Lotrisone 1% cream to apply on the foreskin PRN was ordered for balanitis. The patient states he is compliant with CIC once daily, He was catheterized last night. States using 14 fr catheter. Patient states that he is drinking adequate amount of water daily. He denies any burning with urination at this time. I reviewed the retroperitoneum US results from 11/02/2022 revealed distended urinary bladder with multiple bladder diverticula. No calculi or focal parenchymal lesions. No hydronephrosis. Post void bladder residual volume 228 mL, and Pre void volume was 384 mL. Evaluation today?UA? Bladder scan PVR: 184 mL. Plan--Continue Bethanecol and tamsulosin. Continue catheterization at bed time. 08/16/22--Prostate exam-- No suspicious nodules palpated.? [facility] Medical History UTI (urinary tract infection) BPH (benign prostatic hyperplasia) H/O urinary retention Surgical History H/O transurethral resection of prostate History of hernia repair Family History Father No problems noted. Mother No problems noted. Social History Alcohol intake: current Alcohol intake frequency: holidays/special occasions only Alcohol type: hard liquor Patient Tobacco Use Status: Former Tobacco user Review of Systems Const All systems reviewed & are unremarkable except as noted in HPI and below Reports no additional complaints Eyes Reports no additional complaints ENT Reports no additional complaints Card Reports no additional complaints Resp Reports no additional complaints GI Reports no additional complaints Reports as per HPI Musc Reports no additional complaints Skin/Breast Reports system reviewed and no additional complaints, except as documented Neuro Reports no additional complaints Psych Reports no additional complaints Endo Reports no additional complaints Brent/Lymph Reports no additional complaints Aller/Immun Reports no additional complaints Office Procedures Post Void Residual Post Residual Void Post Void Residual (PVR): 158 [id number] Void Residual by ultrasound Results AMB Urinalysis, Automated UA Leukoctes 500 Valerie/uL Last Edit by JUWAN Fitch on 11/02/23 10:16 UA Nitrite Positive Last Edit by JUWAN Fitch on 11/02/23 10:16 UA Urobilinogen 0.2 mg/dL Last Edit by Priti Nugent, RMA on 11/02/23 10:1 6 UA Protein 15 mg/dL Last Edit by Priti Nugent, RMA on 11/02/23 10:16 UA pH 6.5 Last Edit by Priti Nugent, RMA on 11/02/23 10:16 UA Blood 10 Remy/uL Last Edit by Priti Nugent, RMA on 11/02/23 10:16 UA Specific [place] 1.005 Last Edit by Priti Nugent, RMA on 11/02/23 10: 16 UA Ketone Negative Last Edit by Priti Nugent, RMA on 11/02/23 10:16 UA Bilirubin 0 mg/dL Last Edit by Priti Nugent, RMA on 11/02/23 10:16 UA Glucose 0 mg/dL Last Edit by Priti Nugent, RMA on 11/02/23 10:16 Results Reviewed Results Reviewed: Laboratory Last Values Urine pH (Auto) 6.5 11/02/23 10:15 Specific [place] (Auto) 1.005 11/02/23 10:15 Urine Protein (Auto) 15 mg/dL 11/02/23 10:15 Glucose (UA)(Auto) 0 mg/dL 11/02/23 10:15 Urine Ketones (Auto) Negative 11/02/23 10:15 Urine Blood (Auto) 10 Remy/uL 11/02/23 10:15 Urine Nitrite (Auto) Positive 11/02/23 10:15 Urine Bilirubin (Auto) 0 mg/dL 11/02/23 10:15 Urine Urobilinogen (Auto) 0.2 mg/dL 11/02/23 10:15 Leukocyte Esterase (Auto) 500 Valerie/uL 11/02/23 10:15 Collected: 10/13/23-1445 Status: COMP Req#: [id number] Received: 10/13/23-321 Source: UA Sp Desc: Clean Cat Subm Dr: Carmelita Phipps MD Ordered: Urine Culture Procedure Result Verified Urine Culture Final 10/15/23 Organism 1 Citrobacter species Quant > 100,000 cfu/mL Citro spec M.I.C. RX --------- --- Ceftriaxone <=0.25 S Gentamicin <=1 S Levofloxacin <=0.12 S Nitrofurantoin <=16 S Trimethoprim/Sulfamethoxazole <=20 S Collected: 06/30/23 Status: COMP Req#: [id number] Received: 06/30/23 Source: [facility] Sp Desc: Urine gregg Subm Dr: Carmelita Phipps MD Ordered: Urine Culture Procedure Result Verified Urine Culture Final 07/03/23 Organism 1 Pseudomonas aeruginosa Quant 10,000 to 50,000 cfu/mL P aerugino M.I.C. RX --------- --- Cefepime <=0.12 S Gentamicin <=1 S Levofloxacin 0.25 S Meropenem <=0.25 S Piperacillin/Tazobactam <=4 S Collected: 01/05/23 Status: COMP Req#: [id number] Received: 01/05/23 Source: [facility] Sp Desc: Urine gregg Subm Dr: Carmelita Phipps MD Ordered: Urine Culture Procedure Result Verified Urine Culture Final 01/07/23 Organism 1 Pseudomonas aeruginosa Quant > 100,000 cfu/mL P aerugino M.I.C. RX --------- --- Cefepime 2 S Gentamicin 2 S Levofloxacin 1 S Meropenem 0.5 S Piperacillin/Tazobactam <=4 S Date of Service: 11/02/22 EXAMINATION:? US RETROPERITONEAL COMPLETE (RENAL) CLINICAL INFORMATION: Neuromuscular dysfunction of the bladder, unspecified, measure prostate. COMPARISON:? Ultrasound retroperitoneal 04/07/2022. FINDINGS: RIGHT KIDNEY: 9.5 x 5.1 x 5.6 cm (SAG x AP x TRV). The kidney is normal in size, contour, and echogenicity. Renal cortical thickness is normal. No calculi or focal parenchymal lesions. No hydronephrosis. LEFT KIDNEY: 9.2 x 4.9 x 4.3 cm (SAG x AP x TRV). The kidney is normal in size, contour, and echogenicity. Renal cortical thickness is normal. No calculi or focal parenchymal lesions. No hydronephrosis. BLADDER: The bladder is distended. There are multiple bladder diverticuli. Bilateral ureteral jets are demonstrated. Prevoid bladder volume is 384 mL. Postvoid bladder volume is 228 mL. The prostate is poorly visualized, but appears enlarged. IMPRESSION:? Distended urinary bladder with multiple bladder diverticula. No hydronephrosis. Post void bladder residual volume 228 mL. Assessment & Plan Assessment & Plan (1) Incomplete bladder emptying: Code(s): R33.9 - Retention of urine, unspecified Category: Medical (2) Neurogenic bladder: Code(s): N31.9 - Neuromuscular dysfunction of bladder, unspecified Category: Medical (3) BPH (benign prostatic hyperplasia): Code(s): N40.0 - Benign prostatic hyperplasia without lower urinary tract symptoms Category: Medical (4) UTI symptoms: Code(s): R39.9 - Unspecified symptoms and signs involving the genitourinary system Category: Medical (5) UTI (urinary tract infection): Code(s): N39.0 - Urinary tract infection, site not specified Category: Medical (6) Incomplete bladder emptying: Code(s): R33.9 - Retention of urine, unspecified Category: Medical (7) BPH (benign prostatic hyperplasia): Code(s): N40.0 - Benign prostatic hyperplasia without lower urinary tract symptoms Category: Medical (8) Bacteriuria, asymptomatic: Code(s): R82.71 - Bacteriuria Category: Medical Plan The patient was treated on 10/13/2023 with Ceftin. He states that his urinary symptoms have improved. Urinalysis today remains nitrite positive however this is likely from bacterial colonization. As he is asymptomatic a repeat urine culture will not be sent today. We will continue to monitor bladder scan PVR. I will increase bethanechol to 25 mg t.i.d. and add cranberry supplements. We will continue tamsulosin daily. Follow-up in 2 months check renal ultrasound prior. Orders: Orders AMB Post Void Residual by ultrasound Today R33.9 - Retention of urine, unspecified Blood Urea Nitrogen Today N39.0 - Urinary tract infection, site not specified, R33.9 - Retention of urine, unspecified AMB Urinalysis Automated Today Z13.9 - Encounter for screening, unspecified Urine Culture Today R39.9 - Unspecified symptoms and signs involving the genitourinary system Creatinine Today N39.0 - Urinary tract infection, site not specified, R33.9 - Retention of urine, unspecified Electrolytes Today N39.0 - Urinary tract infection, site not specified, R33.9 - Retention of urine, unspecified US renal BI Today N40.0 - Benign prostatic hyperplasia without lower urinary tract symptoms, R33.9 - Retention of urine, unspecified Medications: New cranberry extract administer with meals 425 mg PO BID 60 caps 5RF bethanechol chloride 25 mg PO TID 90 tabs 5RF Discontinued bethanechol chloride Discontinued Reason: Doctor's Order 25 mg PO BID 90 days 180 tabs 1RF Patient Instructions: The patient had an opportunity to ask questions regarding treatment plan. The patient expressed understanding and agreement with the above treatment plan. The patient is aware they should contact our office by phone for worsening of their current condition or the appearance of new symptoms. Compliance is encouraged with any medications and followup testing that is ordered. It is a privilege to be allowed the opportunity to participate in the urologic care of your patient. If you have any questions or concerns regarding treatment for the above conditions please do not hesitate to contact me. The office telephone contact is [phone]. This note is constructed in part using voice recognition software. While every effort has been made to ensure accuracy strap folding machine operator errors may have been included. Yours sincerely, Carmelita Phipps MD Coding Level of Care Code Est Pt Level 4 (17050) Diagnoses Incomplete bladder emptying R33.9 Neurogenic bladder N31.9 BPH (benign prostatic hyperplasia) N40.0 UTI symptoms R39.9 UTI (urinary tract infection) N39.0 Bacteriuria, asymptomatic R82.71 CPT Codes Post Residual Void - PVR CPT Code: 96256-Wagj Void Residual by ultrasound ([id number])
== END 2023-11-02 10:51 | disposition home or self-care (01) ==
PROVIDERS: PCP Physician Assistant; Visit Provider Urology
DX: R33.9 Retention of urine, unspecified (principal); N31.9 Neuromuscular dysfunction of bladder, unspecified; N40.0 Benign prostatic hyperplasia without lower urinary tract symptoms; R39.9 Unspecified symptoms and signs involving the genitourinary system; N39.0 Urinary tract infection, site not specified; R82.71 Bacteriuria; Z13.9 Encounter for screening, unspecified
CPT/HCPCS: 99214

== ENCOUNTER 2023-11-02 09:23 | Outpatient (REF) | payer MEDICARE, SELFPAY | END 2023-11-02 09:24 | disposition home or self-care (01) | LOC: HO.LAB 09:23 | PROVIDERS: PCP Physician Assistant; Visit Provider Urology | DX: R33.9 Retention of urine, unspecified (principal); N31.9 Neuromuscular dysfunction of bladder, unspecified; N40.0 Benign prostatic hyperplasia without lower urinary tract symptoms; N39.0 Urinary tract infection, site not specified; R82.71 Bacteriuria | CPT/HCPCS: 51798; 81003; 99212 ==

== ENCOUNTER 2023-12-19 08:50 | Outpatient (REF) | payer MEDICARE, SELFPAY ==
--- NOTE | ~2023-12-19 | US_ITS ---
EXAMINATION: US RETROPERITONEAL LIMITED (RENAL ONLY) CLINICAL INFORMATION: Retention of urine, unspecified. COMPARISON: Ultrasound kidneys and bladder 11/02/2022 and 04/07/2022. TECHNIQUE: Real-time imaging of the kidneys. FINDINGS: RIGHT KIDNEY: 10.0 x 4.5 x 4.4 cm (SAG x AP x TRV). The kidney is normal in size, contour, and echogenicity. Renal cortical thickness is normal. No calculi or focal parenchymal lesions. No hydronephrosis. LEFT KIDNEY: 10.2 x 4.4 x 4.5 cm (SAG x AP x TRV). The kidney is normal in size, contour, and echogenicity. Renal cortical thickness is normal. No calculi or focal parenchymal lesions. No hydronephrosis. US/US renal BI IMPRESSION: Normal renal ultrasound. Electronically signed by: Marya Fermin MD 01/29/2024 07:45 PM [facility]
[2023-12-19 13:57] LABS: Anion Gap 11 (12-20); Blood Urea Nitrogen 22 mg/dL (9-16); Carbon Dioxide 27 mmol/L (22-29); Chloride 105 mmol/L (96-108); Estimated Glomerular Filt Rate > 60; Potassium 4.1 mmol/L (3.3-5.1); Sodium 139 mmol/L (135-145)
== END 2023-12-19 08:51 | disposition home or self-care (01) ==
LOC: HO.HMGCX 08:50
PROVIDERS: PCP Physician Assistant; Visit Provider Urology
DX: R33.9 Retention of urine, unspecified (principal); N40.0 Benign prostatic hyperplasia without lower urinary tract symptoms; N39.0 Urinary tract infection, site not specified; R39.9 Unspecified symptoms and signs involving the genitourinary system
CPT/HCPCS: 36415; 76775; 80051; 82565; 84520; 87086; 87088; 87186

== ENCOUNTER 2024-01-02 08:42 | Outpatient (AMB) | payer MEDICARE, SELFPAY ==
--- NOTE | 2024-01-02 08:52 | MHC.OFFVIS ---
Intake Visit Reasons: 2m/US/labs/PVR Intake Note: Patient is Present for 2M follow up US/LABS/PVR Urology Med: Bethanechol, Vitamin C, Tamsulosin, CLOTRIMAZOLE Antibiotic Allergy:Nitrofuratoin, Levofloxacin, Bactrim Blood Thinner:None Todays PVR: 0ML'S Runner Man Required: No Accompanied by: Self / Same As Patient Allergies nitrofurantoin Allergy (Unknown, Verified 01/02/24 08:54) Rash levofloxacin Allergy (Mild, Uncoded 01/02/24 08:54) sweating bactrim Adverse Reaction (Intermediate, Uncoded 01/02/24 08:54) Vomiting HPI Comments Details: 01/02/2024--Seth is an 87-year-old male who is followed for BPH and incomplete bladder emptying and recurrent UTIs. Discussed Renal US results--12/19/23--Kidneys within normal limits, negative for renal urolithiasis. Doing well. cont meds fu 6 months. Review of chart: 11/02/2023--Seth is an 87-year-old male who is followed for BPH and incomplete bladder emptying and recurrent UTIs. The patient was treated on 10/13/2023 with Ceftin. He states that his urinary symptoms have improved. Urinalysis today remains nitrite positive however this is likely from bacterial colonization. As he is asymptomatic a repeat urine culture will not be sent today. We will continue to monitor bladder scan PVR. I will increase bethanechol to 25 mg t.i.d. and add cranberry supplements. We will continue tamsulosin daily. Follow-up in 2 months check renal ultrasound prior. 06/30/23--Seth is an 87-year-old male who presents today to the office for a follow-up. He states he has been compliant with the bethanechol and tamsulosin. He states he has been urinating well. He continues to catheterize at bedtime and reports that the urine volume is minimal. He denies dysuria. He denies gross hematuria. Plan discussed we will continue bethanechol 25 mg twice a day, tamsulosin 0.8 mg daily. Will discontinue catheterization. Follow-up in 4 months. 01/05/2023? He is followed today for US/MELANI/BPH/UTI. He was last seen by me on 08/16/2022 for BPH. Urine c/s, and Renal US prior was ordered during that time. Ceftin 500 mg BID for 5 days, and Lotrisone 1% cream to apply on the foreskin PRN was ordered for balanitis. The patient states he is compliant with CIC once daily, He was catheterized last night. States using 14 fr catheter. Patient states that he is drinking adequate amount of water daily. He denies any burning with urination at this time. I reviewed the retroperitoneum US results from 11/02/2022 revealed distended urinary bladder with multiple bladder diverticula. No calculi or focal parenchymal lesions. No hydronephrosis. Post void bladder residual volume 228 mL, and Pre void volume was 384 mL. Evaluation today?UA? Bladder scan PVR: 184 mL. Plan--Continue Bethanecol and tamsulosin. Continue catheterization at bed time. 08/16/22--Prostate exam-- No suspicious nodules palpated.? PFSH Medical History UTI (urinary tract infection) BPH (benign prostatic hyperplasia) H/O urinary retention Surgical History H/O transurethral resection of prostate History of hernia repair Family History Father No problems noted. Mother No problems noted. Social History Alcohol intake: current Alcohol intake frequency: holidays/special occasions only Alcohol type: hard liquor Patient Tobacco Use Status: Former Tobacco user Review of Systems Const All systems reviewed & are unremarkable except as noted in HPI and below Reports no additional complaints Eyes Reports no additional complaints ENT Reports no additional complaints Card Reports no additional complaints Resp Reports no additional complaints GI Reports no additional complaints Reports as per HPI Musc Reports no additional complaints Skin/Breast Reports system reviewed and no additional complaints, except as documented Neuro Reports no additional complaints Psych Reports no additional complaints Endo Reports no additional complaints Brent/Lymph Reports no additional complaints Aller/Immun Reports no additional complaints Office Procedures Post Void Residual Post Residual Void Post Void Residual (PVR): 0 [id number] Void Residual by ultrasound Results AMB Urinalysis, Automated UA Leukoctes 500 Valerie/uL Last Edit by MAHSA Magana on 01/02/24 09:09 UA Nitrite Positive Last Edit by MAHSA Magana on 01/02/24 09:09 UA Urobilinogen 0.2 mg/dL Last Edit by MAHSA Magana on 01/02/24 09:09 UA Protein 0 mg/dL Last Edit by MAHSA Magana on 01/02/24 09:09 UA pH 6.0 Last Edit by Sandor Duque CCM on 01/02/24 09:09 UA Blood 10 Remy/uL Last Edit by MAHSA Magana on 01/02/24 09:09 UA Specific [place] 1.015 Last Edit by MAHSA Magana on 01/02/24 09:09 UA Ketone Negative Last Edit by MAHSA Magana on 01/02/24 09:09 UA Bilirubin 0 mg/dL Last Edit by MAHSA Magana on 01/02/24 09:09 UA Glucose 0 mg/dL Last Edit by MAHSA Magana on 01/02/24 09:09 Results Reviewed Results Reviewed: Laboratory Last Values Urine pH (Auto) 6.0 01/02/24 09:08 Specific [place] (Auto) 1.015 01/02/24 09:08 Urine Protein (Auto) 0 mg/dL 01/02/24 09:08 Glucose (UA)(Auto) 0 mg/dL 01/02/24 09:08 Urine Ketones (Auto) Negative 01/02/24 09:08 Urine Blood (Auto) 10 Remy/uL 01/02/24 09:08 Urine Nitrite (Auto) Positive 01/02/24 09:08 Urine Bilirubin (Auto) 0 mg/dL 01/02/24 09:08 Urine Urobilinogen (Auto) 0.2 mg/dL 01/02/24 09:08 Leukocyte Esterase (Auto) 500 Valerie/uL 01/02/24 09:08 Date of Service: 12/19/23 EXAMINATION: US RETROPERITONEAL LIMITED (RENAL ONLY) CLINICAL INFORMATION: Retention of urine, unspecified. COMPARISON: Ultrasound kidneys and bladder 11/02/2022 and 04/07/2022. TECHNIQUE: Real-time imaging of the kidneys. FINDINGS: RIGHT KIDNEY: 10.0 x 4.5 x 4.4 cm (SAG x AP x TRV). The kidney is normal in size, contour, and echogenicity. Renal cortical thickness is normal. No calculi or focal parenchymal lesions. No hydronephrosis. LEFT KIDNEY: 10.2 x 4.4 x 4.5 cm (SAG x AP x TRV). The kidney is normal in size, contour, and echogenicity. Renal cortical thickness is normal. No calculi or focal parenchymal lesions. No hydronephrosis. IMPRESSION: Normal renal ultrasound. Collected: 10/13/23 Status: COMP Req#: [id number] Received: 10/13/23 Source: [facility] Sp Desc: Clean Cat Subm Dr: Carmelita Phipps MD Ordered: Urine Culture Procedure Result Verified Urine Culture Final 10/15/23 Organism 1 Citrobacter species Quant > 100,000 cfu/mL Citro spec M.I.C. RX --------- --- Ceftriaxone <=0.25 S Gentamicin <=1 S Levofloxacin <=0.12 S Nitrofurantoin <=16 S Trimethoprim/Sulfamethoxazole <=20 S Collected: 06/30/23 Status: COMP Req#: [id number] Received: 06/30/23 Source: [facility] Sp Desc: Urine gregg Subm Dr: Carmelita Phipps MD Ordered: Urine Culture Procedure Result Verified Urine Culture Final 07/03/23 Organism 1 Pseudomonas aeruginosa Quant 10,000 to 50,000 cfu/mL P aerugino M.I.C. RX --------- --- Cefepime <=0.12 S Gentamicin <=1 S Levofloxacin 0.25 S Meropenem <=0.25 S Piperacillin/Tazobactam <=4 S Collected: 01/05/23 Status: COMP Req#: [id number] Received: 01/05/23 Source: [facility] Sp Desc: Urine gregg Subm Dr: Carmelita Phipps MD Ordered: Urine Culture Procedure Result Verified Urine Culture Final 01/07/23 Organism 1 Pseudomonas aeruginosa Quant > 100,000 cfu/mL P aerugino M.I.C. RX --------- --- Cefepime 2 S Gentamicin 2 S Levofloxacin 1 S Meropenem 0.5 S Piperacillin/Tazobactam <=4 S Date of Service: 11/02/22 EXAMINATION:? US RETROPERITONEAL COMPLETE (RENAL) CLINICAL INFORMATION: Neuromuscular dysfunction of the bladder, unspecified, measure prostate. COMPARISON:? Ultrasound retroperitoneal 04/07/2022. FINDINGS: RIGHT KIDNEY: 9.5 x 5.1 x 5.6 cm (SAG x AP x TRV). The kidney is normal in size, contour, and echogenicity. Renal cortical thickness is normal. No calculi or focal parenchymal lesions. No hydronephrosis. LEFT KIDNEY: 9.2 x 4.9 x 4.3 cm (SAG x AP x TRV). The kidney is normal in size, contour, and echogenicity. Renal cortical thickness is normal. No calculi or focal parenchymal lesions. No hydronephrosis. BLADDER: The bladder is distended. There are multiple bladder diverticuli. Bilateral ureteral jets are demonstrated. Prevoid bladder volume is 384 mL. Postvoid bladder volume is 228 mL. The prostate is poorly visualized, but appears enlarged. IMPRESSION:? Distended urinary bladder with multiple bladder diverticula. No hydronephrosis. Post void bladder residual volume 228 mL. Assessment & Plan Assessment & Plan (1) Incomplete bladder emptying: Code(s): R33.9 - Retention of urine, unspecified Category: Medical (2) Neurogenic bladder: Code(s): N31.9 - Neuromuscular dysfunction of bladder, unspecified Category: Medical (3) BPH (benign prostatic hyperplasia): Code(s): N40.0 - Benign prostatic hyperplasia without lower urinary tract symptoms Category: Medical (4) UTI symptoms: Code(s): R39.9 - Unspecified symptoms and signs involving the genitourinary system Category: Medical (5) UTI (urinary tract infection): Code(s): N39.0 - Urinary tract infection, site not specified Category: Medical (6) Incomplete bladder emptying: Code(s): R33.9 - Retention of urine, unspecified Category: Medical (7) BPH (benign prostatic hyperplasia): Code(s): N40.0 - Benign prostatic hyperplasia without lower urinary tract symptoms Category: Medical (8) Bacteriuria, asymptomatic: Code(s): R82.71 - Bacteriuria Category: Medical Plan tamsulosin, bethanachol, cranberry supplements. fu 6 months Orders: Orders AMB Urinalysis Automated 01/02/24 Z13.9 - Encounter for screening, unspecified Medications: Refilled cranberry extract administer with meals 425 mg PO BID 60 caps 5RF tamsulosin 0.8 mg (2 x 0.4 mg) PO BEDTIME 180 caps 3RF bethanechol chloride 25 mg PO TID 90 tabs 5RF Patient Instructions: The patient had an opportunity to ask questions regarding treatment plan. The patient expressed understanding and agreement with the above treatment plan. The patient is aware they should contact our office by phone for worsening of their current condition or the appearance of new symptoms. Compliance is encouraged with any medications and followup testing that is ordered. It is a privilege to be allowed the opportunity to participate in the urologic care of your patient. If you have any questions or concerns regarding treatment for the above conditions please do not hesitate to contact me. The office telephone contact is [phone]. This note is constructed in part using voice recognition software. While every effort has been made to ensure accuracy sponge maker errors may have been included. Yours sincerely, Carmelita Phipps MD Coding Level of Care Code Est Pt Level 4 (54708) Diagnoses Incomplete bladder emptying R33.9 Neurogenic bladder N31.9 BPH (benign prostatic hyperplasia) N40.0 UTI symptoms R39.9 UTI (urinary tract infection) N39.0 Bacteriuria, asymptomatic R82.71 CPT Codes Post Residual Void - PVR CPT Code: 38374-Bzbn Void Residual by ultrasound ([id number])
== END 2024-01-02 09:46 | disposition home or self-care (01) ==
PROVIDERS: PCP Physician Assistant; Visit Provider Urology
DX: R33.9 Retention of urine, unspecified (principal); N31.9 Neuromuscular dysfunction of bladder, unspecified; N40.0 Benign prostatic hyperplasia without lower urinary tract symptoms; R39.9 Unspecified symptoms and signs involving the genitourinary system; N39.0 Urinary tract infection, site not specified; R82.71 Bacteriuria
CPT/HCPCS: 99214

== ENCOUNTER → 2024-01-02 08:42 | Outpatient (BNVA) | payer MEDICARE, SELFPAY | PROVIDERS: PCP Physician Assistant; Visit Provider Urology | DX: N40.0 Benign prostatic hyperplasia without lower urinary tract symptoms (principal); R33.9 Retention of urine, unspecified; R39.9 Unspecified symptoms and signs involving the genitourinary system; N31.9 Neuromuscular dysfunction of bladder, unspecified; N39.0 Urinary tract infection, site not specified; R82.71 Bacteriuria | CPT/HCPCS: 51798; 81003; 99212 ==

== ENCOUNTER 2024-03-22 08:44 | Outpatient (AMB) | payer MEDICARE, SELFPAY ==
--- NOTE | 2024-03-22 08:45 | MHC.OFFVIS ---
Intake Visit Reasons: Med Review Intake Note: Patient is Present for Telephone Follow Up Med Review Urology Med:Bethanechol, Tamsulosin, Vitamin C Antibiotic Allergy: Nitrofuratoin, Levo, bactrim Blood Thinner: None Circulating Process Inspector Required: No Accompanied by: Self / Same As Patient Allergies nitrofurantoin Allergy (Unknown, Verified 03/22/24 08:48) Rash levofloxacin Allergy (Mild, Uncoded 03/22/24 08:48) sweating bactrim Adverse Reaction (Intermediate, Uncoded 03/22/24 08:48) Vomiting Medication List - Last Reconciled 03/22/24 by Carmelita Phipps MD ascorbic acid (vitamin C) 1,000 mg PO DAILY 90 days bethanechol chloride 50 mg PO BID cefuroxime axetil 500 mg PO BID 7 days clotrimazole-betamethasone 1-0.05 % 1 appl topical BID PRN 2 weeks cranberry extract 425 mg PO BID fluticasone propionate 50 mcg/actuation 1 spray intranasal BID ipratropium bromide intranasal multivitamin 1 tab PO DAILY tamsulosin 0.8 mg (2 x 0.4 mg) PO BEDTIME HPI Comments Details: 03/22/24--Seth is an 87-year-old male who is followed for BPH and incomplete bladder emptying and recurrent UTIs. Discussed dosing of meds. Patient has sweating and chills in the AM and feels it is related to AM dose of bethanochol. He takes med 1 hour prior to meals. Will change dosage to 50 mg bid. Review of chart: 01/02/2024--Seth is an 87-year-old male who is followed for BPH and incomplete bladder emptying and recurrent UTIs. Discussed Renal US results--12/19/23--Kidneys within normal limits, negative for renal urolithiasis. Doing well. cont meds fu 6 months. 11/02/2023--Seth is an 87-year-old male who is followed for BPH and incomplete bladder emptying and recurrent UTIs. The patient was treated on 10/13/2023 with Ceftin. He states that his urinary symptoms have improved. Urinalysis today remains nitrite positive however this is likely from bacterial colonization. As he is asymptomatic a repeat urine culture will not be sent today. We will continue to monitor bladder scan PVR. I will increase bethanechol to 25 mg t.i.d. and add cranberry supplements. We will continue tamsulosin daily. Follow-up in 2 months check renal ultrasound prior. 06/30/23--Seth is an 87-year-old male who presents today to the office for a follow-up. He states he has been compliant with the bethanechol and tamsulosin. He states he has been urinating well. He continues to catheterize at bedtime and reports that the urine volume is minimal. He denies dysuria. He denies gross hematuria. Plan discussed we will continue bethanechol 25 mg twice a day, tamsulosin 0.8 mg daily. Will discontinue catheterization. Follow-up in 4 months. 01/05/2023? He is followed today for US/MELANI/BPH/UTI. He was last seen by me on 08/16/2022 for BPH. Urine c/s, and Renal US prior was ordered during that time. Ceftin 500 mg BID for 5 days, and Lotrisone 1% cream to apply on the foreskin PRN was ordered for balanitis. The patient states he is compliant with CIC once daily, He was catheterized last night. States using 14 fr catheter. Patient states that he is drinking adequate amount of water daily. He denies any burning with urination at this time. I reviewed the retroperitoneum US results from 11/02/2022 revealed distended urinary bladder with multiple bladder diverticula. No calculi or focal parenchymal lesions. No hydronephrosis. Post void bladder residual volume 228 mL, and Pre void volume was 384 mL. Evaluation today?UA? Bladder scan PVR: 184 mL. Plan--Continue Bethanecol and tamsulosin. Continue catheterization at bed time. 08/16/22--Prostate exam-- No suspicious nodules palpated.? PFSH Medical History UTI (urinary tract infection) BPH (benign prostatic hyperplasia) H/O urinary retention Surgical History H/O transurethral resection of prostate History of hernia repair Family History Father No problems noted. Mother No problems noted. Social History Alcohol intake: current Alcohol intake frequency: holidays/special occasions only Alcohol type: hard liquor Patient Tobacco Use Status: Former Tobacco user Review of Systems Const All systems reviewed & are unremarkable except as noted in HPI and below Reports no additional complaints Eyes Reports no additional complaints ENT Reports no additional complaints Card Reports no additional complaints Resp Reports no additional complaints GI Reports no additional complaints Reports as per HPI Musc Reports no additional complaints Skin/Breast Reports system reviewed and no additional complaints, except as documented Neuro Reports no additional complaints Psych Reports no additional complaints Endo Reports no additional complaints Brent/Lymph Reports no additional complaints Aller/Immun Reports no additional complaints Telehealth Telehealth Telehealth Platform: Telephone Location of provider rendering services: practice address Location of patient: address on file Patient Identification confirmed using: Name, : Yes Telehealth method: voice only Patient verbally consented to treatment: Yes Patient verbally consented to billing insurance company: Yes Patient informed of any privacy concerns related to visit: Yes Minutes spent on Phone/Video with Pt.: 16 Assessment & Plan Assessment & Plan (1) Incomplete bladder emptying: Code(s): R33.9 - Retention of urine, unspecified Category: Medical (2) Neurogenic bladder: Code(s): N31.9 - Neuromuscular dysfunction of bladder, unspecified Category: Medical (3) BPH (benign prostatic hyperplasia): Code(s): N40.0 - Benign prostatic hyperplasia without lower urinary tract symptoms Category: Medical (4) UTI (urinary tract infection): Code(s): N39.0 - Urinary tract infection, site not specified Category: Medical (5) Incomplete bladder emptying: Code(s): R33.9 - Retention of urine, unspecified Category: Medical Plan tamsulosin, bethanachol, cranberry supplements. fu 3 months Medications: New bethanechol chloride 50 mg PO BID 60 tabs 5RF Discontinued bethanechol chloride Discontinued Reason: Doctor's Order 25 mg PO TID 90 tabs 5RF Patient Instructions: The patient had an opportunity to ask questions regarding treatment plan. The patient expressed understanding and agreement with the above treatment plan. The patient is aware they should contact our office by phone for worsening of their current condition or the appearance of new symptoms. Compliance is encouraged with any medications and followup testing that is ordered. It is a privilege to be allowed the opportunity to participate in the urologic care of your patient. If you have any questions or concerns regarding treatment for the above conditions please do not hesitate to contact me. The office telephone contact is [phone]. This note is constructed in part using voice recognition software. While every effort has been made to ensure accuracy psychologist military personnel errors may have been included. Yours sincerely, Carmelita Phipps MD Coding Level of Care Code Tele Est Pt Level 4 (61979) Diagnoses Incomplete bladder emptying R33.9 Neurogenic bladder N31.9 BPH (benign prostatic hyperplasia) N40.0 UTI (urinary tract infection) N39.0
== END 2024-03-22 09:24 | disposition home or self-care (01) ==
LOC: HO.HUSH 08:44
PROVIDERS: PCP Physician Assistant; Visit Provider Urology
DX: R33.9 Retention of urine, unspecified (principal); N31.9 Neuromuscular dysfunction of bladder, unspecified; N40.0 Benign prostatic hyperplasia without lower urinary tract symptoms; N39.0 Urinary tract infection, site not specified
CPT/HCPCS: 99214

== ENCOUNTER → 2024-03-22 08:44 | Outpatient (BNVA) | payer MEDICARE, SELFPAY | PROVIDERS: PCP Physician Assistant; Visit Provider Urology ==

== ENCOUNTER 2024-06-22 08:19 | Outpatient (REF) | payer MEDICARE, SELFPAY | END 2024-06-22 08:20 | disposition home or self-care (01) | LOC: HO.LAB 08:19 | PROVIDERS: PCP Physician Assistant; Visit Provider Urology | DX: N39.0 Urinary tract infection, site not specified (principal); B96.89 Other specified bacterial agents as the cause of diseases classified elsewhere; N40.0 Benign prostatic hyperplasia without lower urinary tract symptoms; R39.9 Unspecified symptoms and signs involving the genitourinary system; Z13.9 Encounter for screening, unspecified | CPT/HCPCS: 81003; 87086; 87088; 87186; 99212 ==

== ENCOUNTER 2024-06-22 08:19 | Outpatient (AMB) | payer MEDICARE, SELFPAY ==
--- NOTE | 2024-06-22 08:23 | MHC.OFFVIS ---
Intake Visit Reasons: 6M follow up Intake Note: Patient is present for a 6 month follow up Urology Med:Bethanechol, Tamsulosin, Vitamin C Antibiotic Allergy: Nitrofuratoin, Levo, bactrim Blood Thinner: None PVR:240ml Fire Prevention Captain Required: No Accompanied by: Self / Same As Patient Allergies nitrofurantoin Allergy (Unknown, Verified 06/22/24 08:27) Rash levofloxacin Allergy (Mild, Uncoded 03/22/24 08:48) sweating bactrim Adverse Reaction (Intermediate, Uncoded 03/22/24 08:48) Vomiting Medication List - Last Reconciled 06/22/24 by Carmelita Phipps MD ascorbic acid (vitamin C) 1,000 mg PO DAILY 90 days bethanechol chloride 50 mg PO BID cefuroxime axetil 500 mg PO BID 7 days clotrimazole-betamethasone 1-0.05 % 1 appl topical BID PRN 2 weeks cranberry extract 425 mg PO BID fluticasone propionate 50 mcg/actuation 1 spray intranasal BID ipratropium bromide intranasal multivitamin 1 tab PO DAILY tamsulosin 0.8 mg (2 x 0.4 mg) PO BEDTIME HPI Comments Details: 06/22/24--Seth is an 87-year-old male who is followed for BPH and incomplete bladder emptying and recurrent UTIs. Discussed dosing of meds. Patient complains that he had been doing well up until about a week ago has been having some night sweats. Urinalysis is nitrite positive. In the past he has had urine culture positive for Citrobacter. The patient has allergies listed to Bactrim Levaquin and nitrofurantoin. Will empirically start Ceftin 500 mg b.i.d. pending urine culture. I have encouraged him to increase his water intake and add lemon to the water. 03/22/24--Seth is an 87-year-old male who is followed for BPH and incomplete bladder emptying and recurrent UTIs. Discussed dosing of meds. Patient has sweating and chills in the AM and feels it is related to AM dose of bethanochol. He takes med 1 hour prior to meals. Will change dosage to 50 mg bid. 01/02/2024--Seth is an 87-year-old male who is followed for BPH and incomplete bladder emptying and recurrent UTIs. Discussed Renal US results--12/19/23--Kidneys within normal limits, negative for renal urolithiasis. Doing well. cont meds fu 6 months. 11/02/2023--Seth is an 87-year-old male who is followed for BPH and incomplete bladder emptying and recurrent UTIs. The patient was treated on 10/13/2023 with Ceftin. He states that his urinary symptoms have improved. Urinalysis today remains nitrite positive however this is likely from bacterial colonization. As he is asymptomatic a repeat urine culture will not be sent today. We will continue to monitor bladder scan PVR. I will increase bethanechol to 25 mg t.i.d. and add cranberry supplements. We will continue tamsulosin daily. Follow-up in 2 months check renal ultrasound prior. 06/30/23--Seth is an 87-year-old male who presents today to the office for a follow-up. He states he has been compliant with the bethanechol and tamsulosin. He states he has been urinating well. He continues to catheterize at bedtime and reports that the urine volume is minimal. He denies dysuria. He denies gross hematuria. Plan discussed we will continue bethanechol 25 mg twice a day, tamsulosin 0.8 mg daily. Will discontinue catheterization. Follow-up in 4 months. 01/05/2023? He is followed today for US/MELANI/BPH/UTI. He was last seen by me on 08/16/2022 for BPH. Urine c/s, and Renal US prior was ordered during that time. Ceftin 500 mg BID for 5 days, and Lotrisone 1% cream to apply on the foreskin PRN was ordered for balanitis. The patient states he is compliant with CIC once daily, He was catheterized last night. States using 14 fr catheter. Patient states that he is drinking adequate amount of water daily. He denies any burning with urination at this time. I reviewed the retroperitoneum US results from 11/02/2022 revealed distended urinary bladder with multiple bladder diverticula. No calculi or focal parenchymal lesions. No hydronephrosis. Post void bladder residual volume 228 mL, and Pre void volume was 384 mL. Evaluation today?UA? Bladder scan PVR: 184 mL. Plan--Continue Bethanecol and tamsulosin. Continue catheterization at bed time. 08/16/22--Prostate exam-- No suspicious nodules palpated.? [facility] Medical History UTI (urinary tract infection) BPH (benign prostatic hyperplasia) H/O urinary retention Surgical History H/O transurethral resection of prostate History of hernia repair Family History Father No problems noted. Mother No problems noted. Social History Alcohol intake: current Alcohol intake frequency: holidays/special occasions only Alcohol type: hard liquor Patient Tobacco Use Status: Former Tobacco user Review of Systems Const All systems reviewed & are unremarkable except as noted in HPI and below Reports no additional complaints Eyes Reports no additional complaints ENT Reports no additional complaints Card Reports no additional complaints Resp Reports no additional complaints GI Reports no additional complaints Reports as per HPI Musc Reports no additional complaints Skin/Breast Reports system reviewed and no additional complaints, except as documented Neuro Reports no additional complaints Psych Reports no additional complaints Endo Reports no additional complaints Brent/Lymph Reports no additional complaints Aller/Immun Reports no additional complaints Results AMB Urinalysis, Automated UA Leukoctes 500 Valerie/uL Last Edit by Roxy Pickens on 06/22/24 14:22 UA Nitrite Positive Last Edit by Roxy Pickens on 06/22/24 14:22 UA Urobilinogen 0.2 mg/dL Last Edit by Roxy Pickens on 06/22/24 14:22 UA Protein 0 mg/dL Last Edit by Roxy Pickens on 06/22/24 14:22 UA pH 6.0 Last Edit by Roxy Pickens on 06/22/24 14:22 UA Blood 10 Remy/uL Last Edit by Roxy Pickens on 06/22/24 14:22 UA Specific Luckey 1.015 Last Edit by Roxy Pickens on 06/22/24 14:22 UA Ketone Negative Last Edit by Roxy Pickens on 06/22/24 14:22 UA Bilirubin 0 mg/dL Last Edit by Roxy Pickens on 06/22/24 14:22 UA Glucose 0 mg/dL Last Edit by Roxy Pickens on 06/22/24 14:22 Assessment & Plan Assessment & Plan (1) UTI (urinary tract infection): Code(s): N39.0 - Urinary tract infection, site not specified Category: Medical Plan Ceftin 500 mg twice a day. tamsulosin, bethanachol, cranberry supplements. fu 3 months Orders: Orders AMB Urinalysis Automated Today Z13.9 - Encounter for screening, unspecified Medications: Refilled cefuroxime axetil 500 mg PO BID 14 tabs 0RF 7 days N39.0 - Urinary tract infection, site not specified cranberry extract administer with meals 425 mg PO BID 60 caps 5RF tamsulosin 0.8 mg (2 x 0.4 mg) PO BEDTIME 180 caps 3RF Patient Instructions: The patient had an opportunity to ask questions regarding treatment plan. The patient expressed understanding and agreement with the above treatment plan. The patient is aware they should contact our office by phone for worsening of their current condition or the appearance of new symptoms. Compliance is encouraged with any medications and followup testing that is ordered. It is a privilege to be allowed the opportunity to participate in the urologic care of your patient. If you have any questions or concerns regarding treatment for the above conditions please do not hesitate to contact me. The office telephone contact is [phone]. This note is constructed in part using voice recognition software. While every effort has been made to ensure accuracy studio receptionist errors may have been included. Yours sincerely, Carmelita Phipps MD Coding Diagnoses UTI (urinary tract infection) N39.0
--- OUTSIDE RECORDS SUMMARY | 2024-06-22 08:24 | XMS_ITS ---
Author Organization [facility] Address [address] [place] [address] Care Team Providers Care Manager Mail Name Role Phone Cindy Mcmahon Primary Care Provider Inder Mora [phone] REASON FOR VISIT cx appt 04/24/24 Encounters Encounter Location Date Provider Diagnosis [facility] [address] [place] [address] 04/20/2024 Inder Curiel Plan Of Treatment No Information Progress Notes * Seth DICKEY RDOB:[birth year] (88 yo M)Acc No.[id number]:04/20/2024 Patient:?Seth DICKEY :1935???Age:88 Y???Sex:Male Address:[address] [place] [address] * true * Date:? Generated for Printi belén/Marsha/eTransmitting on:?06/22/2024 08:24 AM EDT
--- OUTSIDE RECORDS SUMMARY | 2024-06-22 08:24 | XMS_ITS | Patient Health Record ---
Author Organization [facility] Address [address] [place] [address] Care Team Providers Care Employee Development Specialist Name Role Phone Cindy Mcmahon Primary Care Provider Inder Mora Unavailable [phone] Allergies No Known Allergies Reason For Referral No Information Medications Medication SIG (Take, Route, Frequency, Duration) Notes Start Date End Date Status Tamsulosin HCl 0.4 MG 1 capsule Orally O nce a day for 30 day(s) Active Fluticasone Furoate Active Kalpana Aspirin EC Low Dose 81 MG 1 tablet Orally Once a day for 30 day(s) Active Bethanechol Chloride Active Ammonium Lactate 12 % 1 application Exte rnally Twice a day for 30 days Active Immunizations Vaccine Route Administration Date Status Comme nts COVID-19 Pfizer BioNTech Vaccine Unknown 02/18/2021 Administered 1st 04/18/2020 2nd 05/07/2020 Influenza Unknown 12/12/2020 Administered Social History Tobacco Use: Social History Observation Description Date Details (start date - stop date) Former Smoker NA - NA Tobacco Use/Smoking Question Answer Notes Are you a: former smoker Additional Findings: Tobacco Non-User Current no n-smoker Alcohol Screen Question Answer Notes Did you have a drink contain ing alcohol in the past year? Yes How often did you have a dri nk containing alcohol in the past year? 2 to 4 times a month (2 points) Points 2 Interpretation Negative Tobacco use other than smoking: Question Answer Notes Are you an other tobacco user? No Problems Problem Type SNOMED Code ICD Code Onset Dates Problem Status W/U Status Risk Notes Problem Plantar wart (49789216) Plantar wart (B07.0) Active confirmed Problem Atherosclerosis of [place] arteries of the extremities (139091701686467) Atherosclerosis of [place] artery of both lower extremities, with unspecified presence of clinical manifestation (I70.203) Active confirmed Vital Signs Blood pressure diastolic 70 mm Hg 01/24/2024 Height 5 ft in 01/24/2024 Blood pressure systolic 132 mm Hg 01/24/2024 Weight 120 lbs 01/24/2024 BMI 23.43 kg/m2 01/24/2024 Procedures Procedure Date Ordered Date Performed Result Body Sit e 39920-MXKIMYW NAIL, 6 OR MORE 07/26/2023 N/A 79031-Kfny Destruction, 1-14 07/26/2023 N/A 78111-XSHV SKIN LESIONS, 2 TO 4 07/26/2023 N/A 06232-SAUHNQN NAIL, 6 OR MORE 10/18/2023 N/A 28524-Unxv Destruction, 1-14 10/18/2023 N/A 93823-HSAX SKIN LESIONS, 2 TO 4 10/18/2023 N/A 56927-PZQFWXK NAIL, 6 OR MORE 01/24/2024 N/A 55974-Zuem Destruction, 1-14 01/24/2024 N/A 82270-ROXE SKIN LESIONS, 2 TO 4 01/24/2024 N/A Encounters Encounter Location Date Provider Diagnosis [address] [address] 07/26/2023 Inder Curiel Atherosclerosis of [place] artery of both lower extremities, with unspecified presence of clinical manifestation I70.203 ; Plantar wart B07.0 ; Tinea unguium B35.1 ; Pain in right toe(s) M79.674 ; Pain in left toe(s) M79.675 ; Right foot pain M79.671 and Xerosis of [facility] L85.[address] [facility] [address] 10/18/2023 Inder Curiel Atherosclerosis of [place] artery of both lower extremities, with unspecified presence of clinical manifestation I70.203 ; Plantar wart B07.0 ; Tinea unguium B35.1 ; Pain in right toe(s) M79.674 ; Pain in left toe(s) M79.675 ; Right foot pain M79.671 and Xerosis of skin L85.[address] [facility] [address] 01/24/2024 Inder Curiel Atherosclerosis of [place] artery of both lower extremities, with unspecified presence of clinical manifestation I70.203 ; Plantar wart B07.0 ; Tinea unguium B35.1 ; Pain in right toe(s) M79.674 ; Pain in left toe(s) M79.675 and Right foot pain M79.[address] [address] 01/24/2024 Inder Curiel [address] [address] 04/20/2024 Inder Curiel Assessments Encounter Date Diagnosis (ICD Code) Assessment Notes Treatment Notes Treatment Clinical Notes Section Notes 07/26/2023 Plantar wart (ICD-10 - B07.0) 07/26/2023 Atherosclerosis of [place] artery of both lower extremities, with unspecified presence of clinical manifestation (ICD-10 - I70.203) 10/18/2023 Plantar wart (ICD-10 - B07.0) 10/18/2023 Atherosclerosis of [place] artery of both lower extremities, with unspecified presence of clinical manifestation (ICD-10 - I70.203) 01/24/2024 Plantar wart (ICD-10 - B07.0) 01/24/2024 Atherosclerosis of [place] artery of both lower extremities, with unspecified presence of clinical manifestation (ICD-10 - I70.203) 01/24/2024 Tinea unguium (ICD-10 - B35.1) 10/18/2023 Tinea unguium (ICD-10 - B35.1) 07/26/2023 Tinea unguium (ICD-10 - B35.1) 07/26/2023 Pain in right toe(s) (ICD-10 - M79.674) 10/18/2023 Pain in right toe(s) (ICD-10 - M79.674) 01/24/2024 Pain in right toe(s) (ICD-10 - M79.674) 01/24/2024 Pain in left toe(s) (ICD-10 - M79.675) 07/26/2023 Pain in left toe(s) (ICD-10 - M79.675) 10/18/2023 Pain in left toe(s) (ICD-10 - M79.675) 10/18/2023 Right foot pain (ICD-10 - M79.671) 07/26/2023 Right foot pain (ICD-10 - M79.671) 01/24/2024 Right foot pain (ICD-10 - M79.671) 10/18/2023 Xerosis of skin (ICD-10 - L85.3) 07/26/2023 Xerosis of skin (ICD-10 - L85.3) Plan Of Treatment Pending Test Test Name Order Date 41571-XPNZITC NAIL, 6 OR MORE 06/30/2021 44362-IKJRBBB NAIL, 6 OR MORE 11/30/2022 95738-BKLTPOG NAIL, 6 OR MORE 02/18/2023 33191-PIRLGRG NAIL, 6 OR MORE 05/13/2023 62802-UAXKXKC NAIL, 6 OR MORE 07/26/2023 20744-ZHOOWYV NAIL, 6 OR MORE 10/18/2023 27376-JVYIUJI NAIL, 6 OR MORE 01/24/2024 99995-Kfdd Destruction, 1-01/24/2024 16023-Aqma Destruction, 1-14 10/18/2023 04737-Dgub Destruction, 1-14 07/26/2023 73868-Yind Destruction, 1-14 05/13/2023 58692-Xjks Destruction, 1-14 02/18/2023 27279-Nxfe Destruction, 1-14 11/30/2022 31143-Rxjr Destruction, 1-14 10/24/2020 79110-Fupc Destruction, 1-14 02/24/2021 37665-Ryle Destruction, 1-14 06/30/2021 53752-JCYX SKIN LESIONS, 2 TO 4 02/19/20 23 44936-FYTK SKIN LESIONS, 2 TO 4 05/13/19 24 72656-PMDZ SKIN LESIONS, 2 TO 4 07/26/19 24 61104-XVHI SKIN LESIONS, 2 TO 4 10/18/19 24 76259-IOBN SKIN LESIONS, 2 TO 4 01/24/20 24 Insurance Providers Payer Name Payer Address Payer Phone Subscriber Number Group Number Insured Name Patient Relationship to Insured Coverage Start Date Coverage End Date BlueCare 65 Medicare Preferred [address] [place] [address] [id number] Seth Oneal Self - patient is the insured Medical (General) History Medical History History ICD Code Plantar Wart Surgical History Surgery Date(Month/Year) hernia 2001
--- OUTSIDE RECORDS SUMMARY | 2024-06-22 08:24 | XMS_ITS ---
Author Organization [facility] Address [address] [place] [address] Care Team Providers Care Tax Clerk Name Role Phone Cindy Mcmahon Primary Care Provider Inder Mora Unavailable [phone] Encounters Encounter Location Date Provider Diagnosis [facility] [address] [place] [address] 04/24/2024 Inder Curiel Plan Of Treatment No Information Progress Notes * Seth DICKEY RDOB:[birth year] (88 yo M)Acc No.[id number]:04/24/2024 Progress Note Patient:IzaiahKELI Seth Rachel Provider:Kyra Curiel DPM :1935???Age:88 Y???Sex:Male Billy e:04/24/2024 Address:[address] [place] [address] Pcp:Cindy Mcmahon Subjective: * Chief Complaints: * ??? * Medical History:? Objective: * Vitals:? Assessment: Plan: * Treatment: * Images: * The named appointment provid er may or may not be the originator of this progress note, and it is not deemed complete until electronically signed by the appointment provider. Sign off status: Pending * Provider:?Inder Curiel DPM Date:?2024 Generated for Gene melissa/Marsha/eTransmitting on:?06/22/2024 08:24 AM EDT
--- OUTSIDE RECORDS SUMMARY | 2024-06-22 08:24 | XMS_ITS ---
Author Organization [facility] Address [address] [place] [address] Care Team Providers Care Physical Education Specialist Name Role Phone Cindy Mcmahon Primary Care Provider Inder Mora Unavailable [phone] REASON FOR VISIT BUY Metatarsal Pads Oval Encounters Encounter Location Date Provider Diagnosis [facility] [address] [place] [address] 01/24/2024 Inder Curiel Plan Of Treatment No Information Progress Notes * Seth DICKEY RDOB:[birth year] (88 yo M)Acc No.[id number]:01/24/2024 Patient:?Seth DICKEY :1935???Age:88 Y???Sex:Male Address:[address] [place] [address] * true * Date:? Generated for Lindai belén/Marsha/eTransmitting on:?06/22/2024 08:24 AM EDT
== END 2024-06-22 09:27 | disposition home or self-care (01) ==
LOC: HO.HUSH 08:20
PROVIDERS: PCP Physician Assistant; Visit Provider Urology
DX: Z13.9 Encounter for screening, unspecified (principal)

== ENCOUNTER 2024-08-16 10:07 | Outpatient (REF) | payer MEDICARE, SELFPAY ==
--- OUTSIDE RECORDS SUMMARY | 2024-08-16 11:44 | XMS_ITS | Patient Health Record ---
Author Organization [facility] Address [address] [place] [address] Care Team Providers Care Furnace Installer Helper Name Role Phone Cindy Mcmahon Primary Care Provider Inder Mora Unavailable [phone] Allergies No Known Allergies Reason For Referral [...] W/U Status Risk Notes Problem Plantar wart (18943893) Plantar wart (B07.0) Active confirmed Problem Atherosclerosis of [place] arteries of the extremities (251654263676845) Atherosclerosis of upper [place] artery of both lower extremities, with unspecified presence of clinical manifestation (I70.203) Active confirmed Vital Signs Blood pressure diastolic 70 mm Hg 01/24/2024 Height 5 ft in 01/24/2024 Blood pressure systolic 132 mm Hg 01/24/2024 Weight 120 lbs 01/24/2024 BMI 23.43 kg/m2 01/24/2024 Procedures Procedure Date Ordered Date Performed Result Body Sit e 44760-NUWAKLG NAIL, 6 OR MORE 10/18/2023 N/A 66530-Raie Destruction, 1-14 10/18/2023 N/A 76380-VTGJ SKIN LESIONS, 2 TO 4 10/18/2023 N/A 81496-VMRZPME NAIL, 6 OR MORE 01/24/2024 N/A 90227-Ajfn Destruction, 1-14 01/24/2024 N/A 42326-DAOF SKIN LESIONS, 2 TO 4 01/24/2024 N/A Encounters Encounter Location Date Provider Diagnosis [address] [address] 10/18/2023 Inder Curiel Atherosclerosis of upper [place] artery of both lower extremities, with unspecified presence of clinical manifestation I70.203 ; Plantar wart B07.0 ; Tinea unguium B35.1 ; Pain in right toe(s) M79.674 ; Pain in left toe(s) M79.675 ; Right foot pain M79.671 and Xerosis of skin L85.[address] [address] 01/24/2024 Inder Curiel Atherosclerosis of upper [place] artery of both lower extremities, with unspecified presence of clinical manifestation I70.203 ; Plantar wart B07.0 ; Tinea unguium B35.1 ; Pain in right toe(s) M79.674 ; Pain in left toe(s) M79.675 and Right foot pain M79.[address] [address] 01/24/2024 Inder Curiel [address] [address] 04/20/2024 Inder Curiel Assessments Encounter Date Diagnosis (ICD Code) Assessment Notes Treatment Notes Treatment Clinical Notes Section Notes 10/18/2023 Plantar wart (ICD-10 - B07.0) 10/18/2023 Atherosclerosis of upper [place] artery of both lower extremities, with unspecified presence of clinical manifestation (ICD-10 - I70.203) 01/24/2024 Plantar wart (ICD-10 - B07.0) 01/24/2024 Atherosclerosis of upper [place] artery of both lower extremities, with unspecified presence of clinical manifestation (ICD-10 - I70.203) 01/24/2024 Tinea unguium (ICD-10 - B35.1) 10/18/2023 Tinea unguium (ICD-10 - B35.1) 10/18/2023 Pain in right toe(s) (ICD-10 - M79.674) 01/24/2024 Pain in right toe(s) (ICD-10 - M79.674) 01/24/2024 Pain in left toe(s) (ICD-10 - M79.675) 10/18/2023 Pain in left toe(s) (ICD-10 - M79.675) 10/18/2023 Right foot pain (ICD-10 - M79.671) 01/24/2024 Right foot pain (ICD-10 - M79.671) 10/18/2023 Xerosis of skin (ICD-10 - L85.3) Plan Of Treatment Pending Test Test Name Order Date 13053-DKXRNGY NAIL, 6 OR MORE 06/30/2021 12824-KCHMVOC NAIL, 6 OR MORE 11/30/2022 62775-ENZKVVG NAIL, 6 OR MORE 02/18/2023 92489-PQRXYTP NAIL, 6 OR MORE 05/13/2023 84742-WDCYTDM NAIL, 6 OR MORE 07/26/2023 30532-KMRRUOI NAIL, 6 OR MORE 10/18/2023 11511-CTRNVQD NAIL, 6 OR MORE 01/24/2024 38227-Nrbv Destruction, 1-01/24/2024 27946-Tusq Destruction, 1-10/18/2023 02781-Inab Destruction, -07/26/2023 96592-Hntk Destruction, -05/13/2023 03360-Pwzy Destruction, 03-2702/18/2023 57172-Pymy Destruction, 03-2711/30/2022 92309-Ugdf Destruction, 03-2710/24/2020 72729-Txhm Destruction, 03-2702/24/2021 84889-Vngv Destruction, 03-2706/30/2021 27285-JDDE SKIN LESIONS, 2 TO 4 02/19/20 23 53288-FIEB SKIN LESIONS, 2 TO 4 05/13/19 24 76256-KIAF SKIN LESIONS, 2 TO 4 07/26/19 24 52303-VAHB SKIN LESIONS, 2 TO 4 10/18/19 24 25831-LWOB SKIN LESIONS, 2 TO 4 01/24/20 24 Insurance Providers Payer Name Payer Address Payer Phone Subscriber Number Group Number Insured Name Patient Relationship to Insured Coverage Start Date Coverage End Date BlueCare 65 Medicare Preferred [address] [place] [address] [id number] [facility] Seth healy Self - patient is the insured Medical (General) History Medical History History ICD Code Plantar Wart Surgical History Surgery Date(Month/Year) hernia 2000
[2024-08-16 13:20] LABS: Appearance Urine Clear; Color Urine Yellow; Glucose Urine UA Negative (Negative); Leukocyte Esterase Urine Trace (Negative); Nitrite Urine Negative (Negative); Specific Gravity - Urine 1.015 (1.005-1.025); UMIC TRIGGER UA YES; Urine Blood Negative (Negative); Urine Ketones Negative (Negative); Urine Protein Negative (Neg-Trace)
[2024-08-16 13:24] LABS: Bacteria Urine None Seen (None Seen); Hyaline Casts Urine 0-2 /LPF (0-2); RBC Urine 0-2 /HPF (0-2); WBC Urine 0-5 /HPF (0-5)
== END 2024-08-16 10:08 | disposition home or self-care (01) ==
LOC: HO.HMGCLDS 10:07
PROVIDERS: Visit Provider Urology
DX: R39.9 Unspecified symptoms and signs involving the genitourinary system (principal)
CPT/HCPCS: 81001; 87086

== ENCOUNTER 2024-10-04 08:20 | Outpatient (AMB) | payer MEDICARE, SELFPAY ==
--- NOTE | 2024-10-04 08:36 | MHC.OFFVIS ---
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: No Accompanied by: Self / Same As Patient Allergies nitrofurantoin Allergy (Unknown, Verified 10/04/24 08:37) Rash levofloxacin Allergy (Mild, Uncoded 03/22/24 08:48) sweating bactrim Adverse Reaction (Intermediate, Uncoded 03/22/24 08:48) Vomiting Medication List - Last Reconciled 10/04/24 by Carmelita Phipps MD ascorbic acid (vitamin C) 1,000 mg PO DAILY 90 days bethanechol chloride 50 mg PO BID cefuroxime axetil 500 mg PO BID 7 days cranberry extract 425 mg PO BID fluticasone propionate 50 mcg/actuation 1 spray intranasal BID ipratropium bromide intranasal multivitamin 1 tab PO DAILY tamsulosin 0.8 mg (2 x 0.4 mg) PO BEDTIME HPI Comments Details: 10/04/24--Seth is an 88-year-old male who is followed for BPH and incomplete bladder emptying and recurrent UTIs. He is currently on tamsulosin and bethanechol. 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 They had 3 children. His daughter lives close by and is supportive. His son lives in [place]. History of Present Illness - He has a history of Benign Prostatic Hyperplasia with incomplete bladder emptying and recurrent urinary tract infections. - He is currently on tamsulosin and bethanechol for management. - Recent urinalysis was negative, and he reports no recent urinary tract infections. - He has been increasing his fluid intake to keep hydrated. - Post-void residual volume is 220 mL. Plan - Continue with tamsulosin and bethanechol as prescribed. - Maintain increased fluid intake to reduce the risk of urinary tract infections. Follow-up in six months. 06/22/24--Seth is an 87-year-old male who is followed for BPH and incomplete bladder emptying and recurrent UTIs. Discussed dosing of meds. Patient complains that he had been doing well up until about a week ago has been having some night sweats. Urinalysis is nitrite positive. In the past he has had urine culture positive for Citrobacter. The patient has allergies listed to Bactrim Levaquin and nitrofurantoin. Will empirically start Ceftin 500 mg b.i.d. pending urine culture. I have encouraged him to increase his water intake and add lemon to the water. 03/22/24--Seth is an 87-year-old male who is followed for BPH and incomplete bladder emptying and recurrent UTIs. Discussed dosing of meds. Patient has sweating and chills in the AM and feels it is related to AM dose of bethanochol. He takes med 1 hour prior to meals. Will change dosage to 50 mg bid. 01/02/2024--Seth is an 87-year-old male who is followed for BPH and incomplete bladder emptying and recurrent UTIs. Discussed Renal US results--12/19/23--Kidneys within normal limits, negative for renal urolithiasis. Doing well. cont meds fu 6 months. 11/02/2023--Seth is an 87-year-old male who is followed for BPH and incomplete bladder emptying and recurrent UTIs. The patient was treated on 10/13/2023 with Ceftin. He states that his urinary symptoms have improved. Urinalysis today remains nitrite positive however this is likely from bacterial colonization. As he is asymptomatic a repeat urine culture will not be sent today. We will continue to monitor bladder scan PVR. I will increase bethanechol to 25 mg t.i.d. and add cranberry supplements. We will continue tamsulosin daily. Follow-up in 2 months check renal ultrasound prior. 06/30/23--Seth is an 87-year-old male who presents today to the office for a follow-up. He states he has been compliant with the bethanechol and tamsulosin. He states he has been urinating well. He continues to catheterize at bedtime and reports that the urine volume is minimal. He denies dysuria. He denies gross hematuria. Plan discussed we will continue bethanechol 25 mg twice a day, tamsulosin 0.8 mg daily. Will discontinue catheterization. Follow-up in 4 months. 01/05/2023? He is followed today for US/MELANI/BPH/UTI. He was last seen by me on 08/16/2022 for BPH. Urine c/s, and Renal US prior was ordered during that time. Ceftin 500 mg BID for 5 days, and Lotrisone 1% cream to apply on the foreskin PRN was ordered for balanitis. The patient states he is compliant with CIC once daily, He was catheterized last night. States using 14 fr catheter. Patient states that he is drinking adequate amount of water daily. He denies any burning with urination at this time. I reviewed the retroperitoneum US results from 11/02/2022 revealed distended urinary bladder with multiple bladder diverticula. No calculi or focal parenchymal lesions. No hydronephrosis. Post void bladder residual volume 228 mL, and Pre void volume was 384 mL. Evaluation today?UA? Bladder scan PVR: 184 mL. Plan--Continue Bethanecol and tamsulosin. Continue catheterization at bed time. 08/16/22--Prostate exam-- No suspicious nodules palpated.? PFSH Medical History UTI (urinary tract infection) BPH (benign prostatic hyperplasia) H/O urinary retention Surgical History H/O transurethral resection of prostate History of hernia repair Family History Father No problems noted. Mother No problems noted. Social History Alcohol intake: current Alcohol intake frequency: holidays/special occasions only Alcohol type: hard liquor Patient Tobacco Use Status: Former Tobacco user Review of Systems Const All systems reviewed & are unremarkable except as noted in HPI and below Reports no additional complaints Eyes Reports no additional complaints ENT Reports no additional complaints Card Reports no additional complaints Resp Reports no additional complaints GI Reports no additional complaints Reports as per HPI Musc Reports no additional complaints Skin/Breast Reports system reviewed and no additional complaints, except as documented Neuro Reports no additional complaints Psych Reports no additional complaints Endo Reports no additional complaints Brent/Lymph Reports no additional complaints Aller/Immun Reports no additional complaints Assessment & Plan Assessment & Plan (1) Incomplete bladder emptying: Code(s): R33.9 - Retention of urine, unspecified Category: Medical (2) BPH (benign prostatic hyperplasia): Code(s): N40.0 - Benign prostatic hyperplasia without lower urinary tract symptoms Category: Medical (3) Neurogenic bladder: Code(s): N31.9 - Neuromuscular dysfunction of bladder, unspecified Category: Medical (4) History of recurrent UTIs: Code(s): Z87.440 - Personal history of urinary (tract) infections Category: Medical Plan Plan - Continue with tamsulosin and bethanechol as prescribed. - Maintain increased fluid intake to reduce the risk of urinary tract infections. Follow-up in six months. Medications: Refilled bethanechol chloride 50 mg PO BID 60 tabs 5RF tamsulosin 0.8 mg (2 x 0.4 mg) PO BEDTIME 180 caps 3RF Patient Instructions: The patient had an opportunity to ask questions regarding treatment plan. The patient expressed understanding and agreement with the above treatment plan. The patient is aware they should contact our office by phone for worsening of their current condition or the appearance of new symptoms. Compliance is encouraged with any medications and followup testing that is ordered. It is a privilege to be allowed the opportunity to participate in the urologic care of your patient. If you have any questions or concerns regarding treatment for the above conditions please do not hesitate to contact me. The office telephone contact is [phone]. This note is constructed in part using voice recognition software. While every effort has been made to ensure accuracy puzzle assembler errors may have been included. Yours sincerely, Carmelita Phipps MD Scribe Plan - Not visible on output: Patient was informed and verbally consented to the use of an ambient scribe for clinic note documentation during this visit. Coding Level of Care Code Est Pt Level 4 (37381) Diagnoses Incomplete bladder emptying R33.9 BPH (benign prostatic hyperplasia) N40.0 Neurogenic bladder N31.9 History of recurrent UTIs Z87.440
--- OUTSIDE RECORDS SUMMARY | 2024-10-04 08:36 | XMS_ITS | Patient Health Record ---
Author Organization [facility] Address [address] [place] [address] Care Team Providers Care Trimming Caser Name Role Phone Cindy Mcmahon Primary Care Provider Gracia Osborn Unavailable [phone] Inder Curiel Unavailable [phone] Allergies No Known Allergies Reason For Referral No Information Medications Medication SIG (Take, Route, Frequency, Duration) Notes Start Date End Date Status Tamsulosin HCl 0.4 MG 1 capsule Orally O nce a day; Duration: 30 day(s) Active Fluticasone Furoate Active Kalpana Aspirin EC Low Dose 81 MG 1 tablet Orally Once a day; Duration: 30 day(s) Active Bethanechol Chloride Active Ammonium Lactate 12 % 1 application Exte rnally Twice a day; Duration: 30 days Active Immunizations Vaccine Route Administration Date Status Comme nts Influenza Unknown 12/12/2020 Administered COVID-19 Pfizer BioNTech Vaccine Unknown 02/18/2021 Administered 1st 04/18/2020 2nd 05/07/2020 Social History Tobacco Use: Social History Observation [...] W/U Status Risk Notes Problem Plantar wart (96113102) Plantar wart (B07.0) Active confirmed Problem Bilateral atherosclerosis of arteries of lower limbs (disorder) ([id number] ) Atherosclerosis of [place] artery of both lower extremities, with unspecified presence of clinical manifestation (I70.203) Active confirmed Vital Signs Blood pressure diastolic 70 mm Hg 01/24/2024 Height 5 ft in 01/24/2024 Blood pressure systolic 132 mm Hg 01/24/2024 Weight 120 lbs 01/24/2024 BMI 23.43 kg/m2 01/24/2024 Procedures Procedure Date Ordered Date Performed Result Body Sit e 07492-ZGSEATJ NAIL, 6 OR MORE 10/18/2023 N/A 47288-Wrwl Destruction, 1-14 10/18/2023 N/A 40163-FPFL SKIN LESIONS, 2 TO 4 10/18/2023 N/A 13983-WXJPIHU NAIL, 6 OR MORE 01/24/2024 N/A 85236-Pkfd Destruction, 1-14 01/24/2024 N/A 95658-XQDF SKIN LESIONS, 2 TO 4 01/24/2024 N/A Encounters Encounter Location Date Provider Diagnosis [address] [address] 10/18/2023 Inder Curiel Atherosclerosis of [place] artery of both lower extremities, with unspecified presence of clinical manifestation I70.203 ; Plantar wart B07.0 ; Tinea unguium B35.1 ; Pain in right toe(s) M79.674 ; Pain in left toe(s) M79.675 ; Right foot pain M79.671 and Xerosis of skin L85.[address] [address] 01/24/2024 Inder Curiel Atherosclerosis of [place] artery of both lower extremities, with unspecified presence of clinical manifestation I70.203 ; Plantar wart B07.0 ; Tinea unguium B35.1 ; Pain in right toe(s) M79.674 ; Pain in left toe(s) M79.675 and Right foot pain M79.[address] [address] 01/24/2024 Inder Curiel [facility] [address] [place] [address] 04/20/2024 Inder Curiel Assessments Encounter Date Diagnosis (ICD Code) Assessment Notes Treatment Notes Treatment Clinical Notes Section Notes 10/18/2023 Plantar wart (ICD-10 - B07.0) 10/18/2023 Atherosclerosis of [place] artery of both lower extremities, with unspecified presence of clinical manifestation (ICD-10 - I70.203) 01/24/2024 Plantar wart (ICD-10 - B07.0) 01/24/2024 Atherosclerosis of [place] artery of both lower extremities, with unspecified [...] Treatment Pending Test Test Name Order Date 55614-JRCSUGM NAIL, 6 OR MORE 06/30/2021 17017-WNTPXSR NAIL, 6 OR MORE 11/30/2022 21768-NPVLJNP NAIL, 6 OR MORE 02/18/2023 15846-XTHFIZJ NAIL, 6 OR MORE 05/13/2023 02122-RTGTFZH NAIL, 6 OR MORE 07/26/2023 40689-AIHOAGN NAIL, 6 OR MORE 10/18/2023 12743-KCWMOWP NAIL, 6 OR MORE 01/24/2024 57351-Xqsh Destruction, 1-14 01/24/2024 49811-Oyux Destruction, 03-2710/18/2023 20682-Nmkk Destruction, 03-2707/26/2023 76078-Bhwf Destruction, 03-2705/13/2023 18682-Ftqs Destruction, 03-2702/18/2023 98327-Ogun Destruction, 03-2711/30/2022 43060-Qhci Destruction, 03-2710/24/2020 20176-Msww Destruction, 03-2702/24/2021 46744-Zawd Destruction, 03-2706/30/2021 10051-JTLF SKIN LESIONS, 2 TO 4 02/19/20 23 50996-LRUJ SKIN LESIONS, 2 TO 4 05/13/19 24 83242-GKYK SKIN LESIONS, 2 TO 4 07/26/19 24 65538-HSXU SKIN LESIONS, 2 TO 4 10/18/19 24 24636-HAOK SKIN LESIONS, 2 TO 4 01/24/20 24 Next Appt Details Provider Name:Gracia chew, 10/17/2024 02:00:00 PM, [address] [place], [address], Insurance Providers Payer Name Payer Address Payer Phone Subscriber Number Group Number Insured Name Patient Relationship to Insured Coverage Start Date Coverage End Date [facility] 65 Medicare Preferred [address] [place] [address] [id number] Seth Oneal Self - patient is the insured Medical (General) History Medical History History ICD Code Plantar Wart Surgical History Surgery Date(Month/Year) hernia 2001
== END 2024-10-04 09:25 | disposition home or self-care (01) ==
LOC: HO.HUSH 08:21
PROVIDERS: PCP Physician Assistant; Visit Provider Urology
DX: R33.9 Retention of urine, unspecified (principal); N40.0 Benign prostatic hyperplasia without lower urinary tract symptoms; N31.9 Neuromuscular dysfunction of bladder, unspecified; Z87.440 Personal history of urinary (tract) infections; Z13.9 Encounter for screening, unspecified
CPT/HCPCS: 99214

== ENCOUNTER → 2024-10-04 08:20 | Outpatient (BNVA) | payer MEDICARE, SELFPAY | PROVIDERS: PCP Physician Assistant; Visit Provider Urology | DX: R33.9 Retention of urine, unspecified (principal); N40.0 Benign prostatic hyperplasia without lower urinary tract symptoms; N31.9 Neuromuscular dysfunction of bladder, unspecified; Z87.440 Personal history of urinary (tract) infections | CPT/HCPCS: 51798; 81003; 99212 ==